=== PATIENT | male | born 1960 | race Caucasian/White ===

== ENCOUNTER 2023-08-19 11:28 | Outpatient (CLI) | payer MEDICAID, SELFPAY ==
[2023-08-19 11:30] VITALS: PULSE 70; O2SAT 96
[2023-08-19 11:36] VITALS: PULSE 107; O2SAT 92
--- NOTE | 2023-08-19 12:49 | HOMEO2EVAL ---
Evaluation was performed at [facility] Home Oxygen Evaluation RC: Home Oxygen (O2) Evaluation Start: 08/19/23 12:36 Freq: Status: Active Protocol: RPE Activity Type Activity Date Activity User E-sign Co-sign Detail Recorded Client Recorded Date Recorded By Document 08/19/23 11:30 ELIZABETH [email or web address] 08/19/23 12:48 SJB Document 08/19/23 11:36 SJB [email or web address] 08/19/23 12:48 SJB 08/19/23 08/19/23 11:30 11:36 Home O2 Evaluation [Oxygen] -Test Phase Resting Exercise -Oxygen Delivery Room Air [Pulse Oximetry] -Pulse Oximetry (90-100 %) 96 92 [Pulse Rate] -Pulse Rate (60-100 beats/min) 70 107 H [Evaluation] -Activity Tolerance Good -Rating of Perceived Dyspnea (PD) +1 Mild, Noticeable to the Participant but Not to an Observer -Rate of Perceived Exertion (PE) 12 Query Text:Click the Protocol Button to View the RPE Scale [Exercise] -Ambulation Distance (feet) 800 -Ambulation Distance (meters) 243.82 [Comments] -Home Oxygen Evaluation Comments Will begin walk Pt walked on room air. approx for 5 1/ 2 mins, 800 ft on room air. Aiden fairly well , coughing frequently and talking throughout. Sp02 stayed at 92% and above. HR up to 107. When RT asked pt if he could go one more lap , pt stated he didn't think he could do much more. [Charges] -Evaluation Charges O2 Evaluation Charge
== END 2023-08-19 11:29 | disposition home or self-care (01) ==
LOC: CHSCARD 11:31
PROVIDERS: PCP Family Medicine; Visit Provider Family Medicine
DX: J44.9 Chronic obstructive pulmonary disease, unspecified (principal)
CPT/HCPCS: 94618

== ENCOUNTER 2024-05-02 11:52 | Outpatient (CLI) | payer OTHER, SELFPAY ==
--- NOTE | ~2024-05-02 | XR_ITS ---
Clinical Indication: COPD PA and lateral views of the chest: Comparison: None Findings: The lungs are clear, without evidence of focal consolidation or pleural effusion. There is COPD pattern of the lungs. Cardiac silhouette unremarkable. There is prominent central pulmonary vasc ulature. Bones and soft tissues are unremarkable. Impression: COPD. Suspected pulmonary artery hypertension versus possibly central pulmonary venous congestive change. Reviewed, dictated and finalized at location . CH BINDING FOLDER Impression: COPD. Suspected pulmonary artery hypertension versus possibly central pulmonary venou s congestive change.
[2024-05-02 12:36] LABS: Basophils Absolute Auto 0.03 K/mm3 (0.00-0.10); Basophils Percent Auto 0.5 % (0.0-1.0); Eosinophils Absolute Auto 0.05 K/mm3 (0.02-0.50); Eosinophils Percent Auto 0.8 % (1.0-6.0); Hematocrit 42.6 % (40.0-54.0); Hemoglobin 14.4 g/dL (14.0-18.0); Immature Granulocyte Absolute 0.01 K/mm3 (0.00-0.00); Immature Granulocyte Percent A 0.2 % (0.0-0.0); Lymphocytes Absolute Auto 1.51 K/mm3 (1.10-4.50); Lymphocytes Percent Auto 23.7 % (18.0-42.0); Mean Corpuscular HGB Conc 33.8 g/dL (32-36); Mean Corpuscular Hemoglobin 31.5 pg (27.0-31.0); Mean Corpuscular Volume 93.2 fL (78.0-102.0); Mean Platelet Volume 9.8 fl (8.7-11.0); Monocytes Absolute Auto 0.38 K/mm3 (0.10-0.90); Neutrophils Absolute Auto 4.38 K/mm3 (1.70-7.20); Neutrophils Percent Auto 68.8 % (50.0-70.0); Platelet Count Result 278 K/mm3 (150-420); Red Blood Count 4.57 M/mm3 (4.70-6.10); Red Cell Distribution Width 13.1 % (11.6-14.4); White Blood Count 6.4 K/mm3 (4.8-10.8)
[2024-05-02 13:39] LABS: Alanine Aminotransferase 55 U/L (16-63); Albumin Level 3.2 g/dL (3.4-5.0); Alkaline Phosphatase 197 U/L (46-116); Anion Gap 7 mmol/L (4-12); Aspartate Amino Transferase 45 U/L (15-37); Bilirubin,Total 0.5 mg/dL (0.00-1.00); Blood Urea Nitrogen 17 mg/dL (7-18); Calcium 9.2 mg/dL (8.5-10.1); Carbon Dioxide 28 mmol/L (21-32); Chloride 101 mmol/L (98-108); Estimated Glomerular Filt Rate > 60; Glucose 158 mg/dL (70-99); Osmolality Calculated 286 mOsm/kg (285-295); Potassium 4.3 mmol/L (3.5-5.1); Sodium 136 mmol/L (136-145); Thyroid Stimulating Hormone 3.78 uIU/mL (0.36-3.74)
[2024-05-03 09:24] LABS: Free T4 Free Thyroxine 1.15 ng/dL (0.76-1.46)
[2024-05-03 09:27] LABS: Hemoglobin A1C 6.4 % (<5.7)
== END 2024-05-02 11:53 | disposition home or self-care (01) ==
LOC: CHSLAB 11:55
PROVIDERS: PCP Family Medicine; Visit Provider Family Medicine
DX: I73.9 Peripheral vascular disease, unspecified (principal); E78.5 Hyperlipidemia, unspecified; J44.1 Chronic obstructive pulmonary disease with (acute) exacerbation
CPT/HCPCS: 36415; 71046; 80053; 83036; 84439; 84443; 85025

== ENCOUNTER 2024-07-13 10:06 | Emergency (ER) | payer OTHER, SELFPAY ==
[2024-07-13] VITALS (33 sets, daily range): BP systolic 106–138; BP diastolic 70–94; PULSE 65–106; RESP 8–19; TEMP 36.3–37.1; O2SAT 96–100
--- NOTE | ~2024-07-13 | XR_ITS ---
EXAMINATION: XR chest 1V portable DATE: 07/13/2024 11:03 INDICATION: COPD with coughing, confusion and drowsiness TECHNIQUE: frontal view of the chest was obtained. COMPARISON: Chest radiograph dated 05/02/2024 FINDINGS: Hyperexpansion of the lungs consistent with provided history of COPD. There are few scattered small c alcified pulmonary nodules along with calcified mediastinal lymph nodes consistent with old granuloma tous disease. No other airspace opacities, pulmonary edema, pleural effusion or pneumothorax. The car diomediastinal silhouette is normal. IMPRESSION: 1. Hyperexpansion lungs consistent with provided history of COPD with no superimposed acute cardiopul monary disease. Reviewed, dictated and finalized at location A. ATIC TEACHER IMPRESSION: 1. Hyperexpansion lungs consistent with provided history of COPD with no superi mposed acute cardiopulmonary disease.
--- NOTE | ~2024-07-13 | CT_ITS ---
Non-contrast Head CT History: Mental status change Technique: Axial non-contrast imaging of the brain was performed. Dose reduction technique was used on this scan by utilizing automated exposure control and iterative reconstruction technique. The dose -length product (DLP) was 605.33 mGy-cm. Findings: There is no evidence of intracranial hemorrhage, mass lesion, or acute infarct. Brain par enchyma appears normal. The ventricles and subarachnoid spaces are normal in size. The calvarium ap pears normal. There is mucosal thickening in the visualized right maxillary sinus. The remaining visu alized paranasal sinuses and mastoid air cells are clear. Impression: No intracranial abnormality seen. Reviewed, dictated and finalized at location . RAM DIRECTOR/MORNING SHOW HOST Impression: No intracranial abnormality seen.
[2024-07-13 10:20] LABS: Glucose Point of Care 111 mg/dl (65-105)
--- NOTE | 2024-07-13 10:24 | ED_ITS ---
HPI - Altered Mental Status General Chief Complaint: Altered Mental Status Stated Complaint: confusion Time Seen by Provider: 07/13/24 10:24 Source: family Limitations: altered mental status History of Present Illness HPI narrative: 63-year-old male, smoker with a history of COPD hepatitis C, PVD status post lower extremity stent presents to the ED with a 2 day history of -- confusion. patient lives with roommates who described him to be confused. He is unable to answer questions. He follows simple commands. He is drowsy but arousable. No focal neuro deficits noted. His daughter who lives in [place] brought him to the ED. -- bilateral leg swelling complaint: altered mental status and confusion Onset (ago): day(s) ( one day) Timing confirmed by: family member Context: liver disease and COPD Related Data Allergies Allergy/AdvReac Type Severity Reaction Status Date / Time No Known Allergies Allergy Verified 07/13/24 10:22 Review of Systems 2 Review of Systems: ROS unobtainable: Yes unobtainable due to mental status FOR[facility]LY [facility], [facility] Past Medical History Medical History (Updated 07/13/24 @ 13:29 by Jasbir Natino MD) Peripheral vascular disease Hepatitis C Asthma exacerbation in COPD Exam 2 Narrative: pulse is 106 blood pressure 112/86. Oxygen saturation of 99% on room air. patient is noted to have a decreased respiratory rate. Const: General: ill appearing Nutritional Appearance: thin Limitations: altered mental status Other: Patient is drowsy but arousable. Does not answer questions. Follows simple commands. HENMT: Head: normal to inspection Ears: external ears normal F yael/Nose/Sinus: Normal external nose present Face and sinus: normal facial exam Mouth: Yes Normal oral and palatal mucosa present Throat: posterior oropharynx normal Eyes: Conjunctivae: conjunctivae normal Pupils: Equal, round and reactive pupils present EOM: EOMs intact bilaterally Direct Ophthalmoscopy: no photophobia Neck: Neck: normal visual inspection, no lymphadenopathy and no meningeal signs Chest: Chest palpation & inspection: normal inspection of the chest Resp: Effort & Inspection: normal respiratory effort Auscultation: rhonchi and diminished lung sounds Cardio: Rate: regular rate Rhythm: regular rhythm GI: GI Palp: Yes Soft to palpation Auscultation: normal bowel sounds O ther: No tenderness/rigidity / rebound. : General: Yes no CVA tenderness Back/Spine/Pelvis: Back: no CVA tenderness Skin: General skin exam: normal color Rashes: no rashes Wounds: no wounds Neuro: General: patient oriented x3, moves all extremities, no meningeal signs, no focal motor deficits and CN's II-XI intact bilaterally Extrem: General: edema Course Course Emergency Course: altered mental status-- improved with IV naloxone. subsequently patient admitted to having taken his roommates pain medications. influenza a hypothyroidism elevated troponin/ CHF hyperinflated lung niño Vital Signs Vital signs: Vital Signs Temperature 36.3 C L 07/13/24 10:06 Pulse Rate 106 H 07/13/24 10:06 Respiratory Rate 14 07/13/24 10:06 Blood Pressure 112/86 07/13/24 10:06 Pulse Oximetry 99 07/13/24 10:06 Oxygen Delivery Nasal Cannula 07/13/24 10:06 Oxygen Flow Rate 3 07/13/24 10:06 Temperature 36.3 C L 07/13/24 10:06 Pulse Rate 82 07/13/24 12:53 Respiratory Rate 16 07/13/24 12:46 Blood Pressure 120/75 07/13/24 12:45 Pulse Oximetry 100 07/13/24 12:46 Oxygen Delivery Nasal Cannula 07/13/24 10:06 Oxygen Flow Rate 3 07/13/24 10:06 MDM - Altered Mental Status MDM Narrative Medical decision making narrative: influenza a opiate overdose CHF-- patient needs further workup and treatment. His CHF is compensated . His blood pressure is marginal. COPD hypothyroidism Differential Diagnosis Differential diagnosis: Likely alcoholic intoxication and altered mental status Medical Records Attestation: I reviewed the patient's medical records. Lab Data Attestation: I reviewed the patient's lab results. 07/13/24 10:48 07/13/24 10:48 Labs: Lab Results 07/13/24 07/13/24 07/13/24 Range/Units 10:17 10:37 10:48 WBC 4.2 L (4.8-10.8) K/mm3 RBC 4.24 L (4.70-6.10) M/mm3 Hgb 13.3 L (14.0-18.0) g/dL Hct 41.1 (40.0-54.0) % MCV 96.9 (78.0-102.0) fL MCH 31.4 H (27.0-31.0) pg MCHC 32.4 (32-36) g/dL RDW 13.5 (11.6-14.4) % Plt Count 178 (150-420) K/mm3 MPV 9.8 (8.7-11.0) fl Immature Gran % (Auto) 0.2 H (0.0-0.0) % Neut % (Auto) 61.5 (50.0-70.0) % Lymph % (Auto) 23.6 (18.0-42.0) % [place] % (Auto) 13.3 H (2.0-11.0) % Eos % (Auto) 0.7 L (1.0-6.0) % Baso % (Auto) 0.7 (0.0-1.0) % Lymph # (Auto) 0.99 L (1.10-4.50) K/mm3 [place] # (Auto) 0.56 (0.10-0.90) K/mm3 Eos # (Auto) 0.03 (0.02-0.50) K/mm3 Baso # (Auto) 0.03 (0.00-0.10) K/mm3 Abs Immat Gran (auto) 0.01 H (0.00-0.00) K/mm3 Absolute Neuts (auto) 2.58 (1.70-7.20) K/mm3 Absolute Nucleated RBC 0.00 (0.00-0.00) K/mm3 Nucleated RBC % 0.0 (0-0.0) % PT 10.7 (9.50-12.1) Seconds INR 1.0 APTT 29.1 (23.9-30.70) Sec Sodium 141 (136-145) mmol/L Potassium 4.2 (3.5-5.1) mmol/L Chloride 104 (98-108) mmol/L Carbon Dioxide 28 (21-32) mmol/L Anion Gap 9 (4-12) mmol/L BUN 16 (7-18) mg/dL Creatinine 1.13 (0.70-1.30) mg/dL Estim Creat Clear Calc 48 ml/min Estimated GFR > 60 (59 - ) Glucose 109 H (70-99) mg/dL POC Capillary Glucose 111 H (65-105) mg/dl Calculated Osmolality 294 (285-295) mOsm/kg Lactic Acid 1.7 (0.4-2.0) mmol/L Calcium 8.8 (8.5-10.1) mg/dL Total Bilirubin 0.3 (0.00-1.00) mg/dL Direct Bilirubin 0.1 (0-0.2) mg/dL AST 36 (15-37) U/L ALT 40 (16-63) U/L Alkaline Phosphatase 210 H (46-116) U/L Ammonia 21 (11-32) umol/L Total Creatine Kinase 103 (39-308) U/L Troponin I 286.9 H* (0.00-60.4) ng/L NT-Pro-B Natriuret Pep 2573 H (0-125) pg/mL Total Protein 7.2 (6.4-8.2) g/dL Albumin 3.3 L (3.4-5.0) g/dL Lipase 47 (16-77) U/L TSH 7.41 H (0.36-3.74) uIU/mL Influenza A (RT-PCR) Positive A (Negative) Influenza B (RT-PCR) Negative (Negative) RSV (RT-PCR) Negative (Negative) SARS-CoV-2 RNA (RT-PCR) Negative (Negative) 07/13/24 Range/Units 12:58 WBC (4.8-10.8) K/mm3 RBC (4.70-6.10) M/mm3 Hgb (14.0-18.0) g/dL Hct (40.0-54.0) % MCV (78.0-102.0) fL MCH (27.0-31.0) pg MCHC (32-36) g/dL RDW (11.6-14.4) % Plt Count (150-420) K/mm3 MPV (8.7-11.0) fl Immature Gran % (Auto) (0.0-0.0) % Neut % (Auto) (50.0-70.0) % Lymph % (Auto) (18.0-42.0) % [place] % (Auto) (2.0-11.0) % Eos % (Auto) (1.0-6.0) % Baso % (Auto) (0.0-1.0) % Lymph # (Auto) (1.10-4.50) K/mm3 [place] # (Auto) (0.10-0.90) K/mm3 Eos # (Auto) (0.02-0.50) K/mm3 Baso # (Auto) (0.00-0.10) K/mm3 Abs Immat Gran (auto) (0.00-0.00) K/mm3 Absolute Neuts (auto) (1.70-7.20) K/mm3 Absolute Nucleated RBC (0.00-0.00) K/mm3 Nucleated RBC % (0-0.0) % PT (9.50-12.1) Seconds INR APTT (23.9-30.70) Sec Sodium (136-145) mmol/L Potassium (3.5-5.1) mmol/L Chloride (98-108) mmol/L Carbon Dioxide (21-32) mmol/L Anion Gap (4-12) mmol/L BUN (7-18) mg/dL Creatinine (0.70-1.30) mg/dL Estim Creat Clear Calc ml/min Estimated GFR (59 - ) Glucose (70-99) mg/dL POC Capillary Glucose (65-105) mg/dl Calculated Osmolality (285-295) mOsm/kg Lactic Acid (0.4-2.0) mmol/L Calcium (8.5-10.1) mg/dL Total Bilirubin (0.00-1.00) mg/dL Direct Bilirubin (0-0.2) mg/dL AST (15-37) U/L ALT (16-63) U/L Alkaline Phosphatase (46-116) U/L Ammonia (11-32) umol/L Total Creatine Kinase (39-308) U/L Troponin I 276.7 H* (0.00-60.4) ng/L NT-Pro-B Natriuret Pep (0-125) pg/mL Total Protein (6.4-8.2) g/dL Albumin (3.4-5.0) g/dL Lipase (16-77) U/L TSH (0.36-3.74) uIU/mL Influenza A (RT-PCR) (Negative) Influenza B (RT-PCR) (Negative) RSV (RT-PCR) (Negative) SARS-CoV-2 RNA (RT-PCR) (Negative) ECG Data EKG #1: ECG completion date: 07/13/24 ECG completion time: 10:48 Interpretation: normal sinus rhythm. S1-S2 S3 pattern is due pulmonary disease. no ST elevation noted. Discharge Plan Discharge Clinical Impression: Influenza A CHF (congestive heart failure) Qualifiers: Heart failure type: unspecified Heart failure chronicity: unspecified Qualified Code(s): I50.9 - Heart failure, unspecified Hypothyroidism Qualifiers: Hypothyroidism type: unspecified Qualified Code(s): E03.9 - Hypothyroidism, unspecified COPD (chronic obstructive pulmonary disease) Qualifiers: COPD type: unspecified COPD Qualified Code(s): J44.9 - Chronic obstructive pulmonary disease, unspecified Opiate overdose Qualifiers: Encounter type: initial encounter Injury intent: accidental or unintentional Q ualified Code(s): T40.601A - Poisoning by unspecified narcotics, accidental (unintentional), initial encounter Patient Disposition: Home, Self-Care Condition: Stable Instructions: Antibiotic Form, Heart Failure (ED), Hypothyroidism (ED), Influenza (ED), Narcotic Safety (ED), COPD (Chronic Obstructive Pulmonary Disease) (ED) Additional Instructions: follow-up with primary care physician Patient Language: Welsh Prescriptions: New naloxone 10 mg/0.4 mL auto-injector 2 mg subcut Q3M Qty: 4 0RF Rx Instructions: until desired response albuterol sulfate [Ventolin HFA] 90 mcg/actuation HFA aerosol inhaler 1 puff inhalation QID PRN (Reason: shortness of breath or wheezing) Qty: 8.5 0RF Follow-up/Referrals: Shadi Farley MD [Primary Care Provider] - Time of Disposition: 13:29
--- NOTE | 2024-07-13 10:36 | ECG_ITS ---
Test Date: 2024-07-13 10:48:30 Measurements Intervals [place] Rate: 93 P: 81 WI: 147 QRS: 241 QRSD: 94 T: 57 QT: 358 QTc: 447 Interpretive Statements SINUS RHYTHM RIGHT AXIS DEVIATION INCOMPLETE RIGHT BUNDLE BRANCH BLOCK PATTERN CONSISTENT WITH PULMONARY DISEASE BASELINE ARTIFACT- I, II, III, AVL, AVF, V4-V6 BORDERLINE ECG No previous ECG available for comparison Electronically Signed On 07-13-2024 11:18:00 TEACHER SPECIALIST by Riaz Morrison D.O.
[2024-07-13] MEDS: NALOXONE HCL 0.4 MG/ML VIAL IV PUSH (10:43)
[2024-07-13] MEDS: ONDANSETRON INJ 4 MG/2 ML VIAL IV PUSH (10:43)
[2024-07-13 10:52] LABS: Basophils Absolute Auto 0.03 K/mm3 (0.00-0.10); Basophils Percent Auto 0.7 % (0.0-1.0); Eosinophils Absolute Auto 0.03 K/mm3 (0.02-0.50); Eosinophils Percent Auto 0.7 % (1.0-6.0); Hematocrit 41.1 % (40.0-54.0); Hemoglobin 13.3 g/dL (14.0-18.0); Immature Granulocyte Absolute 0.01 K/mm3 (0.00-0.00); Immature Granulocyte Percent A 0.2 % (0.0-0.0); Lymphocytes Absolute Auto 0.99 K/mm3 (1.10-4.50); Lymphocytes Percent Auto 23.6 % (18.0-42.0); Mean Corpuscular HGB Conc 32.4 g/dL (32-36); Mean Corpuscular Hemoglobin 31.4 pg (27.0-31.0); Mean Corpuscular Volume 96.9 fL (78.0-102.0); Mean Platelet Volume 9.8 fl (8.7-11.0); Monocytes Absolute Auto 0.56 K/mm3 (0.10-0.90); Monocytes Percent Auto 13.3 % (2.0-11.0); Neutrophils Absolute Auto 2.58 K/mm3 (1.70-7.20); Neutrophils Percent Auto 61.5 % (50.0-70.0); Platelet Count Result 178 K/mm3 (150-420); Red Blood Count 4.24 M/mm3 (4.70-6.10); Red Cell Distribution Width 13.5 % (11.6-14.4); White Blood Count 4.2 K/mm3 (4.8-10.8)
--- OUTSIDE RECORDS SUMMARY | 2024-07-13 11:04 | XMS_ITS | Clinical Summary ---
Author Organization [facility] Address [facility] [place] [address] Care Team Providers Care Earth Observations Chief Scientist Name Role Phone Dipti Rosario MD Primary Care Provider Social History Tobacco Use Types Packs/Day Years Used Date Smoking Tobacco: Smoker, Current Status Unknown Sex and Gender Information Value Date Recorded Sex Assigned at Male 07/01/2024 3:28 PM NOC TECHNICIAN Legal Sex Male 7:51 PM CDT Gender Identity Not on file Sexual Orientation Not on file Last Filed Vital Signs Vital Sign Reading Time Taken Comments Blood Pressure 110/70 01/08/2010 10:19 AM CDT Pulse 75 01/08/2010 10:19 AM CDT Temperature - - Respiratory Rate 14 01/08/2010 10:19 AM CDT Oxygen Saturation - - Inhaled Oxygen Concentration - - Weight 62.1 kg (137 lb) 01/08/2010 10:19 AM CDT Height 165.1 cm (5' 5 ) 01/08/2010 10:19 AM CDT Body Mass Index 22.8 01/08/2010 10:19 AM CDT Plan of Treatment Upcoming Encounters Date Type Department Care Team (Late st Contact Info) Description 07/13/2024 11:15 AM NOC TECHNICIAN Appointment [place] [facility] [address] [place] [address] Ryan Fermin MD [address] [place] [address] Health Maintenance Due Date Last Done Comments Colorectal Cancer Screening Colonoscopy (10 Years) 1960 Annual Physical 1963 Pneumococcal Vaccine: Pediatrics (0 to 5 Years) and At-Risk Patients (6 to 64 Years) (1 of 2 - PCV) 1966 DTaP, Tdap and Td Vaccines ( 1 - Tdap) 1979 Zoster Vaccines (1 of 2) 2010 COVID-19 Vaccine (3 - 2023-2 5 season) 2024 08/25/2020, 07/28/2020 Influenza Adult (#1) 2024 RSV Immunization or 60+ Years (1 - 1-dose 75+ series) 2035 Hepatitis C Completed 09/09/2011, 09/09/2010, 03/19/2010 Meningococcal B Vaccine Aged Out No l onger eligible based on patient's age to complete this topic Meningococcal Vaccine Aged Out No shubham narinder eligible based on patient's age to complete this topic RSV Immunizations Under 20 Months Aged Out No longer eligible b ased on patient's age to complete this topic Insurance Care Teams Earth Observations Chief Scientist Relationship Specialty Start Date End Date Dipti Rosario MD [address] [place] [address] PCP - General INTERNAL MEDICINE 04/06/24
--- OUTSIDE RECORDS SUMMARY | 2024-07-13 11:04 | XMS_ITS ---
Author Organization Unknown Address [address] [place] [phone] Phone Care Team Providers Care Forest Nursery Supervisor Name Role Phone WILBERT GRAYSON Attending Unavailable NATTY CABRAL Primary Unavailable Immunization Immunization Date Status Additional Notes Code Code System COVID-19, mRNA, LNP-S, bivalent, PF, 50 mcg/0.5 mL or 25mcg/0.25 mL dose 07/28/2020 Completed 229 CVX COVID-19, mRNA, LNP-S, bivalent, PF, 50 mcg/0.5 mL or 25mcg/0.25 mL dose 08/25/2020 Completed 229 CVX Results SHOULDER MIN 2V RIGHT - Comp leted: 08/28/2023 13:25 LOINC: EXAM DESCRIPTION: ? ? SHOULDER MIN 2V RIGHT REASON FOR STUDY: chronic shoulder pain/ worsening/ old trauma several years ago Duration: 8-9 years FINDINGS: Four views submitted without comparison. No acute fractures are identified. Alignment is normal. There is mild glenohumeral and severe acromioclavicular joint osteoarthritis. Multiple loose bodies in the subcoracoid recess are noted. IMPRESSION: ? ? Mild right glenohumeral and severe acromioclavicular joint osteoarthritis with multiple loose bodies in the subcoracoid recess. THIS IS AN ELECTRONICALLY VERIFIED FINAL REPORT 08/29/2023 5:16 PM - Electronically signed by Andrew Phan M.D. MF: [email or web address] Report ID: [id number] Reading Location: [id number] Social History Type Status Start Date End Date Code Code Syst em Sex Male Hospital Discharge Instructions Should you have any questions prior to discharge, please contact a member of your healthcare team. If you have left the hospital and have any questions, please contact your primary care physician. Reason For Referral No Data Found Plan of Treatment Split Night, CPAP/BIPAP/ASV (56836) 05/2025 Encounters Encounter Diagnosis Start Date Code Code Sys tem Incomplete rotator cuff tear or rupture of right shoulder, not specified as traumatic 08/28/2023 [facility] Personal Care Team Section Performer Name Performer Role Active Date Inactive MARIANNA Vazquez PCP - Primary care physician Imaging Narrative Notes
[2024-07-13 11:18] LABS: Lactic Acid Reflex 1.7 mmol/L (0.4-2.0)
[2024-07-13 11:22] LABS: Alanine Aminotransferase 40 U/L (16-63); Albumin Level 3.3 g/dL (3.4-5.0); Alkaline Phosphatase 210 U/L (46-116); Anion Gap 9 mmol/L (4-12); Aspartate Amino Transferase 36 U/L (15-37); Bilirubin Direct 0.1 mg/dL (0-0.2); Bilirubin,Total 0.3 mg/dL (0.00-1.00); Blood Urea Nitrogen 16 mg/dL (7-18); Calcium 8.8 mg/dL (8.5-10.1); Carbon Dioxide 28 mmol/L (21-32); Chloride 104 mmol/L (98-108); Creatine Kinase 103 U/L (39-308); Estimated CRCL calculation 48 ml/min; Estimated Glomerular Filt Rate > 60; Glucose 109 mg/dL (70-99); Lipase 47 U/L (16-77); Osmolality Calculated 294 mOsm/kg (285-295); Potassium 4.2 mmol/L (3.5-5.1); Sodium 141 mmol/L (136-145); Thyroid Stimulating Hormone 7.41 uIU/mL (0.36-3.74); Total Protein 7.2 g/dL (6.4-8.2)
[2024-07-13 11:26] LABS: Troponin I 286.9 ng/L (0.00-60.4)
[2024-07-13 11:28] LABS: Partial Thromboplastin Time 29.1 Sec (23.9-30.70); Prothrombin Time 10.7 Seconds (9.50-12.1)
[2024-07-13 11:29] LABS: Ammonia 21 umol/L (11-32); NT Pro B Type Natriuretic Pept 2573 pg/mL (0-125)
--- OUTSIDE RECORDS SUMMARY | 2024-07-13 11:31 | XMS_ITS | Clinical Summary ---
Author Organization [facility] Address [facility] [place] [address] Care Team Providers Care Stable Helper Name Role Phone Dipti Rosario MD Primary Care Provider [phone] Social History Tobacco Use Types Packs/Day Years Used Date Smoking Tobacco: Smoker, Current Status Unknown Sex and Gender Information Value Date Recorded Sex Assigned at Male 07/01/2024 3:28 PM REPORT PROGRAMMER Legal Sex Male 7:51 PM CDT Gender [...] 01/08/2010 10:19 AM CDT Plan of Treatment Health Maintenance Due Date Last Done Comments [...] patient's age to complete this topic Insurance [employer] Care Teams Stable Helper Relationship Specialty Start Date End Date Dipti Rosario MD [address] [place] [phone] PCP - General INTERNAL MEDICINE 04/06/24
--- OUTSIDE RECORDS SUMMARY | 2024-07-13 11:31 | XMS_ITS ---
Author Organization Unknown Address [address] [place] [phone] Phone Care Team Providers Care Manager Helpdesk Name Role Phone WILBERT GRAYSON Attending Unavailable [...] Andrew Phan M.D. MF: [email or web address] Report ID: [id number] Reading Location: [id number] Social History Type Status Start Date End Date Code Code Syst em Sex Male Hospital Discharge Instructions Should you have any questions prior to discharge, please contact a member of your healthcare team. If you have left the hospital and have any questions, please contact your primary care physician. Reason For Referral No Data Found Plan of Treatment Split Night, CPAP/BIPAP/ASV (97581) 05/2025 Encounters Encounter Diagnosis Start Date Code Code Sys tem Incomplete rotator cuff tear or rupture of right shoulder, not specified as traumatic 08/28/2023 [facility] Personal Care Team Section Performer Name Performer Role Active Date Inactive MARIANNA Vazquez PCP - Primary care physician Imaging Narrative Notes
[2024-07-13 11:55] LABS: SARS-CoV-2 RNA PCR Negative (Negative)
[2024-07-13 11:56] LABS: Influenza A QL RT-PCR Positive (Negative); Influenza B QL RT-PCR Negative (Negative); RSV RNA, RT-PCR Negative (Negative)
[2024-07-13] MEDS: NALOXONE HCL INJ 2 MG/2 ML AMP SUB-Q (12:32)
[2024-07-13 13:21] LABS: Troponin I 276.7 ng/L (0.00-60.4)
== END 2024-07-13 13:35 | disposition home or self-care (01) ==
PROVIDERS: Emergency Provider Internal Medicine Critical Care Medicine; PCP Family Medicine
DX: J10.1 Influenza due to other identified influenza virus with other respiratory manifestations (principal); J44.9 Chronic obstructive pulmonary disease, unspecified; E03.9 Hypothyroidism, unspecified; T40.601A Poisoning by unspecified narcotics, accidental (unintentional), initial encounter; I50.9 Heart failure, unspecified; Z20.822 Contact with and (suspected) exposure to COVID-19
CPT/HCPCS: 36415; 70450; 71045; 80048; 80076; 82140; 82550; 82948; 83605; 83690; 83880; 84443; 84484; 85025; 85610; 85730; 87637; 93005; 96372; 96374; 96375; 99284; J2310; J2405

== ENCOUNTER 2024-07-27 15:22 | Outpatient (CLI) | payer OTHER, SELFPAY ==
--- NOTE | ~2024-07-27 | XR_ITS ---
EXAMINATION: XR chest 2V Exam Date/Time: 07/27/2024 15:42 VOCATIONAL TRAINING INSTRUCTOR HISTORY: COPD with exacerbation,SOB Comparison: 07/13/2024, 07/03/2023. RESULT: Lines, tubes, and devices: None. Lungs and pleura: New lobar interstitial and airspace opacities in the right lower lobe. Emphysemato us change. Trace right costophrenic angle blunting. Cardiomediastinal silhouette: Stable. Other: No acute osseous or upper abdominal finding. IMPRESSION: Right lower lobe pneumonia. Possible trace right pleural effusion. Reviewed, dictated and finalized at location K. TIONAL TRAINING INSTRUCTOR
[2024-07-27 15:45] LABS: Hematocrit 40.3 % (40.0-54.0); Mean Corpuscular HGB Conc 32.3 g/dL (32-36); Mean Platelet Volume 10.3 fl (8.7-11.0); Platelet Count Result 208 K/mm3 (150-420); Red Cell Distribution Width 12.9 % (11.6-14.4)
[2024-07-27 15:57] LABS: White Blood Count 23.1 K/mm3 (4.8-10.8)
[2024-07-27 16:07] LABS: Prothrombin Time 11.3 Seconds (9.50-12.1)
[2024-07-27 16:08] LABS: Band Neutrophils Percent 5 % (0-6); Basophils Percent Manual 0 % (0-1); Eosinophils Percent Manual 0 % (1-6); Lymphocytes Absolute Manual 1.38 K/mm3 (1.1-4.5); Lymphocytes Percent Manual 6 % (18-44); Monocytes Absolute Manual 1.38 K/mm3 (0.1-0.90); Monocytes Percent Manual 6 % (3-9); Neutrophils Absolute Manual 20.32 K/mm3 (1.3-6.7); Neutrophils Percent Manual 83 % (46-73); Total Cells Counted 100
[2024-07-27 16:09] LABS: Alanine Aminotransferase 30 U/L (16-63); Albumin Level 2.3 g/dL (3.4-5.0); Alkaline Phosphatase 212 U/L (46-116); Amylase 31 U/L (25-115); Anion Gap 10 mmol/L (4-12); Aspartate Amino Transferase 34 U/L (15-37); Bilirubin,Total 0.6 mg/dL (0.00-1.00); Blood Urea Nitrogen 44 mg/dL (7-18); Calcium 9.2 mg/dL (8.5-10.1); Carbon Dioxide 29 mmol/L (21-32); Chloride 99 mmol/L (98-108); Estimated Glomerular Filt Rate > 60; Free T4 Free Thyroxine 1.45 ng/dL (0.76-1.46); GGT 19 U/L (15-85); Glucose 171 mg/dL (70-99); Lipase 31 U/L (16-77); Osmolality Calculated 301 mOsm/kg (285-295); Platelet Estimate Adequate (Adequate); Potassium 3.6 mmol/L (3.5-5.1); Sodium 138 mmol/L (136-145); Thyroid Stimulating Hormone 2.85 uIU/mL (0.36-3.74); Total Protein 7.2 g/dL (6.4-8.2)
[2024-07-27 16:26] LABS: Ammonia < 10 umol/L (11-32)
--- OUTSIDE RECORDS SUMMARY | 2024-07-27 17:50 | XMS_ITS | Clinical Summary ---
Author Organization [facility] Address [facility] [place] [address] Care Team Providers Care Spool Hauler Name Role Phone Dipti Rosario MD Primary Care Provider [phone] Social History Tobacco Use Types Packs/Day Years Used Date Smoking Tobacco: Smoker, Current Status Unknown Sex and Gender Information Value Date Recorded Sex Assigned at Male 07/01/2024 3:28 PM TRANSFER DRIVER Legal Sex Male 7:51 PM CDT Gender [...] patient's age to complete this topic Insurance [employer]W Care Teams Spool Hauler Relationship Specialty Start Date End Date Dipti Rosario MD [address] [place] [phone] PCP - General INTERNAL MEDICINE 04/06/24
--- OUTSIDE RECORDS SUMMARY | 2024-07-27 17:50 | XMS_ITS ---
Author Organization Unknown Address [address] [place] [phone] Phone Care Team Providers Care Aviation Safety Inspector Name Role Phone WILBERT GRAYSON Attending Unavailable [...] Andrew Phan M.D. MF: SHOAIB Report ID: [id number] Reading Location: [id number] Social History Type Status Start Date End Date Code Code Syst em Sex Male Hospital Discharge Instructions Should you have any questions prior to discharge, please contact a member of your healthcare team. If you have left the hospital and have any questions, please contact your primary care physician. Reason For Referral No Data Found Plan of Treatment Split Night, CPAP/BIPAP/ASV (76536) 05/2025 Encounters Encounter Diagnosis Start Date Code Code Sys tem Incomplete rotator cuff tear or rupture of right shoulder, not specified as traumatic 08/28/2023 [facility] Personal Care Team Section Performer Name Performer Role Active Date Inactive MARIANNA Vazquez PCP - Primary care physician Imaging Narrative Notes
== END 2024-07-27 15:23 | disposition home or self-care (01) ==
PROVIDERS: PCP Family Medicine; Visit Provider Family Medicine
DX: R10.9 Unspecified abdominal pain (principal); B19.20 Unspecified viral hepatitis C without hepatic coma; R94.6 Abnormal results of thyroid function studies; J18.9 Pneumonia, unspecified organism
CPT/HCPCS: 36415; 71046; 80053; 82140; 82150; 82977; 83690; 84439; 84443; 85025; 85610

== ENCOUNTER 2025-02-01 12:00 | Emergency (ER) | payer OTHER, SELFPAY ==
[2025-02-01] VITALS (15 sets, daily range): BP systolic 112–141; BP diastolic 68–78; PULSE 60–85; RESP 14–24; TEMP 36.6–36.7; O2SAT 98–100
--- NOTE | 2025-02-01 | CONSULT_PTH ---
PATIENT: Eddie Kirkland LOC: [facility] U#:[id number] AGE/SX: 64/M ROOM: RE02/01/[address]: Jasbir Nation MD : 1960 BED: DIS: 02/01/2025 SPEC #: [id number] RECD: 02/01/25 13:23 STATUS: TARA REQ #: [id number] STEPHANIE: 02/01/25 00:[address]: Jasbir Nation DEPT: [facility] Consult RECD BY: Kathie Villalobos MLT, ([facility]) ENTERED: 02/01/25 13:24 SP TYPE: Consult OTHR DR: Shadi Farley MD Tissues: A - Peripheral Smear Procedures: Hematology Consult
--- NOTE | ~2025-02-01 | XR_ITS ---
EXAMINATION: XR chest 1V portable DATE: 02/01/2025 12:58 INDICATION: Shortness of breath TECHNIQUE: frontal view of the chest was obtained. COMPARISON: Chest radiograph dated 07/27/2024 FINDINGS: Prior airspace opacities in the right middle and lower lobes resolved. A few unchanged small scattered bilateral calcified pulmonary nodules and calcified mediastinal lymph nodes consistent with old granulomatous disease. No other airspace opacities, pulmonary edema, pleural effusion or pneumothorax. Heart size is normal. Several loose osteochondral bodies in the deep subscapular recess of the right glenohumeral joint. IMPRESSION: 1. No acute cardiopulmonary disease. Reviewed, dictated and finalized at location A.
--- NOTE | 2025-02-01 12:15 | ED.SOB ---
HPI - SOB/Dyspnea General Chief Complaint: Shortness of Breath/Dyspnea Stated Complaint: shortness of breath Source: patient Mode of arrival: ambulatory Limitations: no limitations History of Present Illness HPI Narrative: 64-year-old male with a history of smoking, COPD on home oxygen, peripheral vascular disease status post stent of lower extremity, hepatitis-C presents to the ED with a 2 hour history of -- worsening shortness of breath. -- cough with mucopurulent sputum no fever or chills. Complains of pleuritic chest pain. Patient had a court date this morning. When he got out of the house at 10:00 a.m. the patient developed the above symptoms following which he presented to the ED. MD elicited complaint: shortness of breath, cough and chest pain Pertinent past history: COPD Onset (ago): hour(s) ( 2 hours ago) Timing: constant Severity: severe Exacerbating factors: exertion and humidity Relieving factors: nothing Known history of: COPD Associated symptoms: cough, wheezing and sputum production Treatment prior to arrival: none Related Data Home oxygen amount: 2 liters Home Medications ?Medication ?Instructions ?Recorded ?Confirmed ?Last Taken ?Type albuterol sulfate 2.5 mg/3 mL 2.5 mg inhalation Q4-6H 02/01/25 02/01/25 Unknown History (0.083 %) solution for nebulization atorvastatin 20 mg tablet 20 mg PO QPM 02/01/25 02/01/25 Unknown History calcium polycarbophil 625 mg 625 mg PO DAILY 02/01/25 02/01/25 Unknown History tablet (Fiber (calcium polycarbophil)) montelukast 10 mg tablet 10 mg PO DAILY 02/01/25 02/01/25 Unknown History omeprazole 20 mg capsule,delayed 20 mg PO DAILY 02/01/25 02/01/25 Unknown History release theophylline 400 mg 400 mg PO DAILY 02/01/25 02/01/25 Unknown History tablet,extended release 24 hr Allergies Allergy/AdvReac Type Severity Reaction Status Date / Time No Known Allergies Allergy Verified 02/01/25 12:20 Review of Systems Review of Systems: All systems reviewed & are unremarkable except as noted in HPI and below Constitutional: Constitutional: Reports as per HPI, Reports no additional constitutional complaints, Reports chills and Reports weakness Eyes: Eyes: Reports as per HPI and Reports no additional eye complaints ENT: Reports system reviewed and no additional complaints, except as documented and Reports as per HPI Cardiovascular: Cardiovascular: Reports as per HPI and Reports no additional cardiovascular complaints Respiratory: Respiratory: Reports as per HPI, Reports no additional respiratory complaints, Reports cough, Reports dyspnea and Reports wheezing Gastrointestinal: Gastrointestinal: Reports as per HPI and Reports no additional gastrointestinal complaints Genitourinary: Genitourinary: Reports no additional male genitourinary complaints and Reports as per HPI Musculoskeletal: Musculoskeletal: Reports no additional musculoskeletal complaints and Reports as per HPI Integumentary/Breasts: Skin/Breast: Reports system reviewed and no additional complaints, except as docu and Reports as per HPI Neurologic: Reports system reviewed and no additional complaints, except as documented and Reports as per HPI Psychiatric: Psychiatric: Reports no additional psychiatric complaints and Reports as per HPI Endocrine: Endocrine: Reports no additional endocrine complaints and Reports as per HPI Hematologic/Lymphatic: Hematologic/Lymphatic: Reports no additional hematologic/lymphatic complaints and Reports as per HPI Allergic/Immunologic: Allergic/Immunologic: Reports no additional allergic/immunologic complaints and Reports as per HPI [facility] Past Medical History Medical History Peripheral vascular disease Hepatitis C Asthma exacerbation in COPD Exam Narrative: oxygen saturation of 98% on 3 L of O2. Respiratory rate of 24. Const: General: ill appearing Nutritional Appearance: thin Orientation/consciousness: patient oriented x3 Limitations: no limitations HENMT: Head: normal to inspection Ears: external ears normal Face/Nose/Sinus: Normal external nose present Face and sinus: normal facial exam Mouth: Yes Normal oral and palatal mucosa present Throat: posterior oropharynx normal Eyes: Conjunctivae: conjunctivae normal Pupils: Equal, round and reactive pupils present EOM: EOMs intact bilaterally Direct Ophthalmoscopy: no photophobia Neck: Neck: normal visual inspection, no lymphadenopathy and no meningeal signs Chest: Other: Hyperinflated lung niño Resp: Auscultation: wheezes and diminished lung sounds Cardio: Rate: regular rate Rhythm: regular rhythm GI: GI Palp: Yes Soft to palpation Auscultation: normal bowel sounds Other: no tenderness/ rigidity /rebound : General: Yes no CVA tenderness Back/Spine/Pelvis: Back: no CVA tenderness Skin: General skin exam: normal color Rashes: no rashes Wounds: no wounds Neuro: General: patient oriented x3, moves all extremities, no meningeal signs, no focal motor deficits and CN's II-XI intact bilaterally Cranial nerves: Yes Nystagmus not present Speech: normal speech Extrem: General: normal to inspection and edema Psych: Mental Status: mental status grossly normal Affect: normal affect Attitude: cooperative Course Course Emergency Course: COPD exacerbation/ Chronic respiratory failure-- patient complains of chronic shortness of breath, cough with mucopurulent sputum and pleuritic chest pain. Chest x-ray did not show any acute findings. Patient has normal troponin and a normal D-dimer. ProBNP was noted to be 777. will treat with Zithromax. Patient is not compliant with his medications. EKG did not show any acute changes. Unchanged from a prior EKG done on 07/13/2024. Vital Signs Vital signs: Vital Signs Temperature 36.6 C 02/01/25 12:00 Pulse Rate 85 02/01/25 12:00 Respiratory Rate 24 H 02/01/25 12:00 Blood Pressure 141/77 H 02/01/25 12:00 Pulse Oximetry 98 02/01/25 12:00 Oxygen Delivery Nasal Cannula 02/01/25 12:00 Oxygen Flow Rate 3 02/01/25 12:00 Temperature 36.6 C 02/01/25 12:00 Pulse Rate 62 02/01/25 13:16 Respiratory Rate 17 02/01/25 13:16 Blood Pressure 134/68 02/01/25 13:15 Pulse Oximetry 100 02/01/25 13:16 Oxygen Delivery Nasal Cannula 02/01/25 13:15 Oxygen Flow Rate 3 02/01/25 13:15 MDM - SOB/Dyspnea MDM Narrative Medical decision making narrative: COPD exacerbation Differential Diagnosis Differential diagnosis: Likely congestive heart failure Medical Records Attestation: I reviewed the patient's medical records. Lab Data Attestation: I reviewed the patient's lab results. 02/01/25 12:55 02/01/25 12:55 Labs: Lab Results 02/01/25 Range/Units 12:55 WBC 3.3 L (4.8-10.8) K/mm3 RBC 3.84 L (4.70-6.10) M/mm3 Hgb 12.0 L (14.0-18.0) g/dL Hct 37.5 L (40.0-54.0) % MCV 97.7 (78.0-102.0) fL MCH 31.3 H (27.0-31.0) pg MCHC 32.0 (32-36) g/dL RDW 13.1 (11.6-14.4) % Plt Count 155 (150-420) K/mm3 MPV 10.0 (8.7-11.0) fl Immature Gran % (Auto) Not Reportable Neut % (Auto) Not Reportable Lymph % (Auto) Not Reportable Edwards % (Auto) Not Reportable Eos % (Auto) Not Reportable Baso % (Auto) Not Reportable Lymph # (Auto) Not Reportable Edwards # (Auto) Not Reportable Eos # (Auto) Not Reportable Baso # (Auto) Not Reportable Abs Immat Gran (auto) Not Reportable Absolute Neuts (auto) Not Reportable Absolute Nucleated RBC Not Reportable Total Counted 100 Neutrophils % (Manual) 58 (46-73) % Band Neutrophils % 0 (0-6) % Lymphocytes % (Manual) 33 (18-44) % Monocytes % (Manual) 9 (3-9) % Nucleated RBC % Not Reportable Abs Neuts (Manual) 1.91 (1.3-6.7) K/mm3 Abs Lymphs (Manual) 1.08 L (1.1-4.5) K/mm3 Abs Monocytes (Manual) 0.29 (0.1-0.90) K/mm3 Platelet Estimate Adequate (Adequate) Schistocytes Not Reportable D-Dimer 0.35 (0.19-0.50) mg/L Sodium 139 (137-145) mmol/L Potassium 4.0 (3.4-5.0) mmol/L Chloride 102 (98-107) mmol/L Carbon Dioxide 31 H (22-30) mmol/L Anion Gap 6 (4-12) mmol/L BUN 19 (9-20) mg/dL Creatinine 0.94 (0.7-1.3) mg/dL Estim Creat Clear Calc 53 ml/min Estimated GFR > 60 (59 - ) Glucose 120 H (65-110) mg/dL Calculated Osmolality 291 (285-295) mOsm/kg Lactic Acid 1.1 (0.4-2.0) mmol/L Calcium 8.9 (8.4-10.2) mg/dL Total Bilirubin 0.3 (0.2-1.3) mg/dL AST 41 (17-59) U/L ALT 36 (6-50) U/L Alkaline Phosphatase 128 H (38-126) U/L Total Creatine Kinase 75 (55-170) U/L Troponin I < 0.012 (0.000-0.034) ng/mL NT-Pro-B Natriuret Pep 777 H (19.9-100) pg/mL Total Protein 6.5 (6.3-8.2) g/dL Albumin 3.6 (3.5-5.1) g/dL ECG Data EKG #1: ECG completion date: 02/01/25 ECG completion time: 12:53 Interpretation: normal sinus rhythm. Old septal infarct. The flank/infection in anterior leads. S1-S2 S3. No ST elevation. Discharge Plan Discharge Clinical Impression: COPD exacerbation Patient Disposition: Home Condition: Stable Instructions: Antibiotic Form, COPD (Chronic Obstructive Pulmonary Disease) (ED) Patient Language: British Prescriptions: New azithromycin [Zithromax] 250 mg tablet See Rx Instructions .ROUTE .COMPLEX Qty: 6 0RF Rx Instructions: For 250 mg dose pack: take 500 mg today (day 1), then 250 mg for 4 days (days 2-5) No Action naloxone 10 mg/0.4 mL auto-injector 2 mg subcut Q3M Qty: 4 0RF Rx Instructions: until desired response albuterol sulfate [Ventolin HFA] 90 mcg/actuation HFA aerosol inhaler 1 puff inhalation QID PRN (Reason: shortness of breath or wheezing) Qty: 8.5 0RF atorvastatin 20 mg tablet 20 mg PO QPM albuterol sulfate 2.5 mg /3 mL (0.083 %) solution for nebulization 2.5 mg inhalation Q4-6H theophylline 400 mg tablet extended release 24 hr 400 mg PO DAILY calcium polycarbophil [Fiber (calcium polycarbophil)] 625 mg tablet 625 mg PO DAILY omeprazole 20 mg capsule,delayed release(DR/EC) 20 mg PO DAILY montelukast 10 mg tablet 10 mg PO DAILY Follow-up/Referrals: Shadi Farley MD [Primary Care Provider, Internal Medicine] Time of Disposition: 13:40
--- NOTE | 2025-02-01 12:43 | ECG_ITS ---
Test Date: 2025-02-01 12:53:18 Measurements Intervals [place] Rate: 64 P: 77 OR: 156 QRS: 227 QRSD: 99 T: 71 QT: 414 QTc: 430 Interpretive Statements SINUS RHYTHM INDETERMINATE AXIS S1-S2-S3 PATTERN, CONSISTENT WITH PULMONARY DISEASE, RVH, OR NORMAL VARIANT PATTERN CONSISTENT WITH PULMONARY DISEASE INCOMPLETE RIGHT BUNDLE BRANCH BLOCK [90+ ms QRS DURATION, TERMINAL R IN V1/V2, 40+ ms S IN I/aVL/V4/V5/V6] SEPTAL MYOCARDIAL INFARCTION , OF INDETERMINATE AGE [40+ ms Q WAVE IN V1/V2] ABNORMAL ECG Compared to ECG 07/13/2024 10:48:30 Right ventricular hypertrophy now present Myocardial infarct finding now present Right-axis deviation no longer present Electronically Signed On 02-01-2025 15:00:23 CDT by Vishal Otto M.D.
[2025-02-01] MEDS: IPRATROPIUM 0.5 MG/ALBUTEROL SULFATE 2.5 MG AMPUL.NEB 3 ML INHALATION (12:55)
[2025-02-01 13:00] LABS: Hematocrit 37.5 % (40.0-54.0); Hemoglobin 12.0 g/dL (14.0-18.0); Mean Corpuscular HGB Conc 32.0 g/dL (32-36); Mean Corpuscular Hemoglobin 31.3 pg (27.0-31.0); Mean Corpuscular Volume 97.7 fL (78.0-102.0); Platelet Count Result 155 K/mm3 (150-420); Red Blood Count 3.84 M/mm3 (4.70-6.10); White Blood Count 3.3 K/mm3 (4.8-10.8)
[2025-02-01 13:12] LABS: Alanine Aminotransferase 36 U/L (6-50); Albumin Level 3.6 g/dL (3.5-5.1); Alkaline Phosphatase 128 U/L (38-126); Anion Gap 6 mmol/L (4-12); Aspartate Amino Transferase 41 U/L (17-59); Bilirubin,Total 0.3 mg/dL (0.2-1.3); Blood Urea Nitrogen 19 mg/dL (9-20); Calcium 8.9 mg/dL (8.4-10.2); Carbon Dioxide 31 mmol/L (22-30); Chloride 102 mmol/L (98-107); Creatine Kinase 75 U/L (55-170); Estimated CRCL calculation 53 ml/min; Estimated Glomerular Filt Rate > 60; Glucose 120 mg/dL (65-110); Osmolality Calculated 291 mOsm/kg (285-295); Potassium 4.0 mmol/L (3.4-5.0); Sodium 139 mmol/L (137-145); Total Protein 6.5 g/dL (6.3-8.2)
[2025-02-01 13:21] LABS: Band Neutrophils Percent 0 % (0-6); Lymphocytes Absolute Manual 1.08 K/mm3 (1.1-4.5); Lymphocytes Percent Manual 33 % (18-44); Monocytes Absolute Manual 0.29 K/mm3 (0.1-0.90); Monocytes Percent Manual 9 % (3-9); NT Pro B Type Natriuretic Pept 777 pg/mL (19.9-100); Neutrophils Absolute Manual 1.91 K/mm3 (1.3-6.7); Neutrophils Percent Manual 58 % (46-73); Total Cells Counted 100
[2025-02-01 13:33] LABS: Troponin I < 0.012 ng/mL (0.000-0.034)
--- OUTSIDE RECORDS SUMMARY | 2025-02-01 13:38 | XMS_ITS | Clinical Summary ---
Author Organization [facility] Address [address] [place] [address] Care Team Providers Care Steel Erector Name Role Phone Shadi Farley MD Primary Care Provide r Alise Olguin NP Unavailable Allergies No known active allergies Medications tiotropium (SPIRIVA) 18 mcg per inhalation capsule Place 1 puff (1 capsule total) into inhaler and inhale daily Active theophylline (UNIPHYL) 400 mg 24 hr tablet Take 1 tablet (400 mg total) by mouth daily Active montelukast (SINGULAIR) 10 mg tablet Take 1 tablet (10 mg total) by mouth nightly Active budesonide (PULMICORT) 0.5 mg/2 mL nebulizer solution Take 2 mL (0.5 mg total) by nebulization daily Rinse mouth with water after use. Do not swallow. Active docusate sodium (COLACE) 100 mg capsuleIndicati ons:constipatio n Take 1 capsule (100 mg total) by mouth 2 (two) times a day Active aspirin 81 mg enteric coated tablet Take 1 tablet (81 mg total) by mouth daily Active atorvastatin (LIPITOR) 20 mg tablet Take 1 tablet (20 mg total) by mouth daily Active albuterol HFA (PROVENTIL HFA,VENTOLIN HFA,PROAIR HFA) 90 mcg/actuation inhaler Inhale 2 puffs every 6 (six) hours as needed for wheezing Active arformoteroL (BROVANA) 15 mcg/2 mL nebulizer solution Take 2 mL (15 mcg total) by nebulization 2 (two) times a day Active benzonatate (TESSALON) 100 mg capsuleIndicati ons:Cough Take 1 capsule (100 mg total) by mouth every 8 (eight) hours as needed for cough 20 capsule 5 Active guaiFENesin ER (MUCINEX) 600 mg 12 hr tablet Take 1 tablet (600 mg total) by mouth every 12 (twelve) hours as needed for cough 60 tablet [address] (PROTONIX) 40 mg EC tabletIndicatio ns:Treatment of Non-Bleeding Gastric Disorder Take 1 tablet (40 mg total) by mouth 2 (two) times a day 60 tablet 1 5 08/03/19 26 Active Active Problems Problem Noted Date Diagnosed Date Precordial chest pain 08/08/2024 Acute on chronic heart failu re with preserved ejection fraction 08/08/2024 Sepsis, due to unspecified o rganism, unspecified whether acute organ dysfunction present 07/27/2024 Assessment & Plan (07/27/2024 10:23 PM DISEASE CONTROL INSPECTOR): Secondary to pneumonia etiology WBC 23.9K, lactic acid 2.8, heart rate 104, respiratory rate 23, blood pressure 87/57 Repeat lactate level pending IV fluid IV antibiotic with Rocephin and azithromycin Pending follow-up of blood culture results x2 Throat culture pending Urine antigen markers pending IV drug user 07/27/2024 Assessment & Plan (07/27/2024 10:24 PM DISEASE CONTROL INSPECTOR): Long history of IV drug use referred, most recently having overdose several weeks ago as noted Prior HIV testing negative more than 1 year ago as referred by patient Patient requests HIV testing at this time --- pending for a.m. Pneumonia 07/27/2024 Assessment & Plan (07/27/2024 10:25 PM DISEASE CONTROL INSPECTOR): Noted on CT imaging No sign of respiratory compromise at time of assessment IV antibiotics as noted Pending follow-up of blood culture x2 Throat culture pending Urine for antigen markers pending Moderate protein malnutrition 07/27/2024 Assessment & Plan (07/27/2024 10:25 PM DISEASE CONTROL INSPECTOR): Weight loss referred by patient Physical examination identifies cachectic patient BMI 19.47 Pending assessment a TSH and F T4 levels Hyperglycemia 07/27/2024 Assessment & Plan (07/27/2024 10:26 PM DISEASE CONTROL INSPECTOR): Glucose level over 200 noted upon arrival A1c level and on testing pending Fingersticks q.a.c. and HS with sliding scale coverage Further adjustments to management to be coordinated Body mass index 25.0-25.9, adult 11/20/2023 Hepatitis C virus infection 11/20/2023 Chronic obstructive pulmonary disease (COPD) Asthma in adult, unspecified asthma severity, un complicated 11/20/2023 Chronic abdominal pain 11/20/2023 Vascular disease 11/20/2023 Personal history of other diseases of family physician y system 11/20/2023 Surgical History Surgery Date Site/Laterality Comments COLONOSCOPY CARDIAC CATHETERIZATION N/A Medical History Medical History Date Comments Peripheral vascular disease 2006 COPD (chronic obstructive pulmonary disease) Hepatitis C Sharma esophagus Hyperlipidemia Lung disease Coronary artery disease Hypothyroidism Family History Medical History Relation Name Comments Heart disease Father Stroke Father Lung cancer Mother Relation Name Status Comments Father Mother Social History Tobacco Use Types Packs/Day Years Used Date Smoking Tobacco: Former Cigarettes Tobacco Cessation:Counseling Given: Not Answered Alcohol Use Standard Drinks/Week Comments Not Currently 0 (1 standard drink = 0.6 oz pure alcohol) alcoholic, last drink summer 2023 [facility] Utilities Answer Date Recorded In the past 12 months has [employer], gas, oil, or water [employer] threatened to shut off services in your home? No 07/28/2024 Social Connection and Isolation Panel Answer Date Recorded In a typical week, how many times do you talk on the phone with family, friends, or neighbors? More than three times a week 07/28/2024 How often do you get togethe r with friends or relatives? More than three times a week 07/28/2024 How often do you attend chur ch or buddhist services? 1 to 4 times per year 07/28/2024 Do you belong to any clubs o r organizations such as jehovah's witness groups, unions, fraternal or athletic groups, or school groups? No 07/28/2024 How often do you attend meet ings of the clubs or organizations you belong to? Never 07/28/2024 Are you , , di vorced, , never , or living with a partner? Never 07/28/2024 Overall Financial Resource Strain (CARDIA) Answe r Date Recorded How hard is it for you to pa y for the very basics like food, housing, medical care, and heating? Not very hard 07/28/2024 Hunger Vital Sign Answer Date Recorded Within the past 12 months, y ou worried that your food would run out before you got the money to buy more. Never true 07/28/19 25 Within the past 12 months, t he food you bought just didn't last and you didn't have money to get more. Never true 07/28/2024 PRAPARE - Transportation Answer Date Re corded In the past 12 months, has l ack of transportation kept you from medical appointments or from getting medications? No 07/03 In the past 12 months, has l ack of transportation kept you from meetings, work, or from getting things needed for daily living? No 07/28/2024 Housing Stability Vital Sign Answer Martin e Recorded In the last 12 months, was t here a time when you were not able to pay the mortgage or rent on time? No 07/28/2024 In the past 12 months, how m any times have you moved where you were living? 0 07/28/2024 At any time in the past 12 m [facility], were you homeless or living in a usp (including now)? No 07/28/2024 Personal Safety Answer Date Recorded Have you ever been in or are you currently in a harmful physical or emotional relationship or is someone making you feel afraid or unsafe? Denies 07/27/2024 Sex and Gender Information Value Date Recorded Sex Assigned at Not on file Legal Sex Male 9:43 AM DISEASE CONTROL INSPECTOR Gender Identity Not on file Sexual Orientation Not on file Obstetrics History Last Filed Vital Signs Vital Sign Reading Time Taken Comments Blood Pressure 96/58 08/02/2024 3:09 PM DISEASE CONTROL INSPECTOR Pulse 90 08/02/2024 3:09 PM DISEASE CONTROL INSPECTOR Temperature 36.6 C (97.9 F) 08/02/2024 11:19 AM DISEASE CONTROL INSPECTOR Respiratory Rate 16 08/02/2024 3:09 PM DISEASE CONTROL INSPECTOR Oxygen Saturation 100% 08/02/2024 3:09 PM DISEASE CONTROL INSPECTOR Inhaled Oxygen Concentration - - Weight 53.1 kg (117 lb) 07/27/2024 10:12 PM DISEASE CONTROL INSPECTOR Height 165.1 cm (5' 5) 07/28/2024 12:30 PM DISEASE CONTROL INSPECTOR Body Mass Index 19.47 07/27/2024 10:12 PM DISEASE CONTROL INSPECTOR Plan of Treatment Health Maintenance Due Date Last Done Comments Colon Cancer Screening-Colonoscopy 1960 Depression Screening 1960 Prostate Cancer Screening-PSA 1960 DTaP/Tdap/Td Vaccine (1 - Tdap) 1971 Hepatitis B Screening 1978 Regular Well Visit/Exam 18-64 1978 Pneumococcal vaccine <65 (1 of 2 - PCV) 1979 Zoster Vaccine (1 of 2) 2010 Covid-19 Vaccine (3 - season) 2025, 07/28/2020 Influenza Vaccine (#1) 2025 Hepatitis C Screening Completed 11/20/2023, 024 Insurance [facility] Advance Directives For more information, please contact: [phone] * Full Code (Latest Code Status on File) Date Activated Date Inactivated Comments 07/27/2024 10:52 PM 08/02/2024 8:40 PM Care Teams Steel Erector Relationship Specialty Start Date End Date Shadi Farley MD [address] [place] [address] PCP - General Family Medicine 08/21/23 Alise Olguin NP [id number] [facility] [address] [address] Nurse Practitioner Cardiology 08/02/24
--- OUTSIDE RECORDS SUMMARY | 2025-02-01 13:38 | XMS_ITS | Clinical Summary ---
Author Organization [facility] Address [facility] [place] [address] Care Team Providers Care Beadworker Name Role Phone Dipti Rosario MD Primary Care Provider [phone] Social History Tobacco Use Types Packs/Day Years Used Date Smoking Tobacco: Smoker, Current Status Unknown Sex and Gender Information Value Date Recorded Sex Assigned at Male 07/01/2024 3:28 PM WATERSHED MANAGER Legal Sex Male 7:51 PM CDT Gender [...] 10:19 AM CDT Height 165.1 cm (5' 5) 01/08/2010 10:19 AM CDT Body Mass Index 22.8 01/08/2010 10:19 AM CDT Plan of Treatment Health Maintenance Due Date Last Done Comments Colorectal Cancer Screening Colonoscopy (10 Years) 1960 Annual Physical 1963 DTaP, Tdap and Td Vaccines ( 1 - Tdap) 1979 Pneumococcal Vaccine: 50+ Years (1 of 2 - PCV) 1979 Zoster Vaccines (1 of 2) 2010 COVID-19 Vaccine (3 - 2023-2 5 season) 2024 08/25/2020, 07/28/2020 RSV Immunization or 60+ Years (1 - [...] patient's age to complete this topic Insurance [employer] Care Teams Beadworker Relationship Specialty Start Date End Date Dipti Rosario MD [address] [place] [address] PCP - General INTERNAL MEDICINE 04/06/24
== END 2025-02-01 13:43 | disposition home or self-care (01) ==
PROVIDERS: Emergency Provider Internal Medicine Critical Care Medicine; PCP Family Medicine
DX: J44.1 Chronic obstructive pulmonary disease with (acute) exacerbation (principal); Z99.81 Dependence on supplemental oxygen; Z79.899 Other long term (current) drug therapy
CPT/HCPCS: 36415; 71045; 80053; 82550; 83605; 83880; 84484; 85025; 85380; 93005; 94640; 99284

== ENCOUNTER 2025-02-08 12:12 | Outpatient (CLI) | payer OTHER, SELFPAY ==
[2025-02-08 12:29] LABS: Hematocrit 40.0 % (40.0-54.0); Hemoglobin 13.0 g/dL (14.0-18.0); Immature Granulocyte Percent A 0.2 % (0.0-0.0); Lymphocytes Absolute Auto 1.29 K/mm3 (1.10-4.50); Mean Corpuscular HGB Conc 32.5 g/dL (32-36); Mean Corpuscular Hemoglobin 31.6 pg (27.0-31.0); Mean Corpuscular Volume 97.1 fL (78.0-102.0); Nucleated Red Blood Cells Absolute Auto 0.00 K/mm3 (0.00-0.00); Nucleated Red Blood Cells Perc 0.0 % (0-0.0); Platelet Count Result 213 K/mm3 (150-420); Red Blood Count 4.12 M/mm3 (4.70-6.10); White Blood Count 5.1 K/mm3 (4.8-10.8)
[2025-02-08 12:56] LABS: Alanine Aminotransferase 36 U/L (6-50); Albumin Level 4.2 g/dL (3.5-5.1); Alkaline Phosphatase 157 U/L (38-126); Anion Gap 9 mmol/L (4-12); Aspartate Amino Transferase 43 U/L (17-59); Bilirubin,Total 0.5 mg/dL (0.2-1.3); Blood Urea Nitrogen 24 mg/dL (9-20); Calcium 9.4 mg/dL (8.4-10.2); Carbon Dioxide 28 mmol/L (22-30); Chloride 102 mmol/L (98-107); Estimated Glomerular Filt Rate > 60; Glucose 120 mg/dL (65-110); Osmolality Calculated 293 mOsm/kg (285-295); Potassium 4.5 mmol/L (3.4-5.0); Sodium 139 mmol/L (137-145); Total Protein 7.1 g/dL (6.3-8.2)
--- OUTSIDE RECORDS SUMMARY | 2025-02-08 13:01 | XMS_ITS | Clinical Summary ---
Author Organization [facility] Building [facility] Address [address] [place] [address] Care Team Providers Care Leather Craftsman Name Role Phone Shadi Farley MD Primary [...] 07/27/2024 Assessment & Plan (07/27/2024 10:23 PM INSPECTOR INTEGRATED CIRCUITS): Secondary to pneumonia etiology WBC 23.9K, lactic acid 2.8, heart rate 104, respiratory rate 23, blood pressure 87/57 Repeat lactate level pending IV fluid IV antibiotic with Rocephin and azithromycin Pending follow-up of blood culture results x2 Throat culture pending Urine antigen markers pending IV drug user 07/27/2024 Assessment & Plan (07/27/2024 10:24 PM INSPECTOR INTEGRATED CIRCUITS): Long history of IV drug use referred, most recently having overdose several weeks ago as noted Prior HIV testing negative more than 1 year ago as referred by patient Patient requests HIV testing at this time --- pending for a.m. Pneumonia 07/27/2024 Assessment & Plan (07/27/2024 10:25 PM INSPECTOR INTEGRATED CIRCUITS): Noted on CT imaging No sign of respiratory compromise at time of assessment IV antibiotics as noted Pending follow-up of blood culture x2 Throat culture pending Urine for antigen markers pending Moderate protein malnutrition 07/27/2024 Assessment & Plan (07/27/2024 10:25 PM INSPECTOR INTEGRATED CIRCUITS): Weight loss referred by patient Physical examination identifies cachectic patient BMI 19.47 Pending assessment a TSH and F T4 levels Hyperglycemia 07/27/2024 Assessment & Plan (07/27/2024 10:26 PM INSPECTOR INTEGRATED CIRCUITS): Glucose level over 200 noted upon arrival [...] 11/20/2023 Personal history of other diseases of general 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 Utilities Answer Date Recorded In the past 12 months has [employer], gas, oil, or water [employer] [employer] threatened to shut off services in your [...] often do you attend chur ch or sikh services? 1 to 4 times per year [...] any time in the past 12 m [facility], were you homeless or living in a senior care (including now)? No 07/28/2024 Personal Safety Answer Date Recorded Have you ever been in or are you currently in a harmful physical or emotional relationship or is someone making you feel afraid or unsafe? Denies 07/27/2024 Sex and Gender Information Value Date Recorded Sex Assigned at Not on file Legal Sex Male 9:43 AM INSPECTOR INTEGRATED CIRCUITS Gender Identity Not on file Sexual Orientation Not on file Obstetrics History Last Filed Vital Signs Vital Sign Reading Time Taken Comments Blood Pressure 96/58 08/02/2024 3:09 PM INSPECTOR INTEGRATED CIRCUITS Pulse 90 08/02/2024 3:09 PM INSPECTOR INTEGRATED CIRCUITS Temperature 36.6 C (97.9 F) 08/02/2024 11:19 AM INSPECTOR INTEGRATED CIRCUITS Respiratory Rate 16 08/02/2024 3:09 PM INSPECTOR INTEGRATED CIRCUITS Oxygen Saturation 100% 08/02/2024 3:09 PM INSPECTOR INTEGRATED CIRCUITS Inhaled Oxygen Concentration - - Weight 53.1 kg (117 lb) 07/27/2024 10:12 PM INSPECTOR INTEGRATED CIRCUITS Height 165.1 cm (5' 5) 07/28/2024 12:30 PM INSPECTOR INTEGRATED CIRCUITS Body Mass Index 19.47 07/27/2024 10:12 PM INSPECTOR INTEGRATED CIRCUITS Plan of Treatment Health Maintenance Due Date [...] Hepatitis C Screening Completed 11/20/2023, 024 Insurance [facility] Advance Directives For more information, please contact: [phone] * Full Code (Latest Code Status on File) Date Activated Date Inactivated Comments 07/27/2024 10:52 PM 08/02/2024 8:40 PM Care Teams Leather Craftsman Relationship Specialty Start Date End Date Shadi Farley MD [address] [place] [address] PCP - General Family Medicine 08/21/23 Alise Olguin NP [address] [place] [address] [address] Nurse Practitioner Cardiology 08/02/24
[2025-02-08 13:07] LABS: GGT < 10.0 U/L (15-73)
[2025-02-08 13:27] LABS: Thyroid Stimulating Hormone 2.780 uIU/mL (0.465-4.680)
== END 2025-02-08 12:13 | disposition home or self-care (01) ==
PROVIDERS: PCP Family Medicine; Visit Provider Family Medicine
DX: R94.6 Abnormal results of thyroid function studies (principal)
CPT/HCPCS: 36415; 80053; 82977; 84443; 85025; 86803

== ENCOUNTER 2025-02-08 13:33 | Emergency (ER) | payer OTHER, SELFPAY ==
[2025-02-08] VITALS (9 sets, daily range): BP systolic 104–143; BP diastolic 71–82; PULSE 60–89; RESP 18–20; TEMP 36.6–36.8; O2SAT 95–100
--- NOTE | ~2025-02-08 | XR_ITS ---
XR chest 1V portable 02/08/2025 14:13 Indication: Shortness of breath Procedure: AP portable chest Comparison: Comparison to multiple prior studies sequentially, with oldest reviewed study dated 05/02/2024. Findings: Heart size normal. No focal air space disease, pulmonary edema, pleural effusion or suspected pneumothorax. The lungs are hyperinflated which is consistent with, but not diagnostic of chronic obstructive pulmonary disease. Impression: 1: No acute cardiopulmonary disease. Reviewed, dictated and finalized at location O. Impression: 1: No acute cardiopulmonary disease.
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
--- NOTE | 2025-02-08 13:42 | ECG_ITS ---
Test Date: 2025-02-08 13:50:31 Measurements Intervals [place] Rate: 74 P: 90 NC: 149 QRS: 204 QRSD: 102 T: 70 QT: 399 QTc: 444 Interpretive Statements SINUS RHYTHM PATTERN CONSISTENT WITH PULMONARY DISEASE POSSIBLE RIGHT VENTRICULAR HYPERTROPHY [SOME/ALL OF: PROMINENT R IN V1, LATE TRANSITION, RAD, LIZZIE, SSS] ABNORMAL ECG Compared to ECG 02/01/2025 12:53:18 NO SIGNIFICANT DIFFERENCE Electronically Signed On 02-08-2025 16:35:46 CDT by Andrew Padilla M.D.
[2025-02-08] MEDS: IPRATROPIUM 0.5 MG/ALBUTEROL SULFATE 2.5 MG AMPUL.NEB 3 ML INHALATION (13:53)
[2025-02-08 14:12] LABS: HCO3 ABG 22.4 mmol/L (23-29); Oxygen Saturation ABG 92.7 % (95-97); PCO2 ABG 37.6 mmHg (35-45); PO2 ABG 69.2 mmHg (80-90)
--- OUTSIDE RECORDS SUMMARY | 2025-02-08 14:12 | XMS_ITS | Clinical Summary ---
Author Organization [facility] Medical Office Building B Address [address] [place] [address] Care Team Providers Care Scrap Iron Loader Name Role Phone Shadi Farley MD Primary [...] 07/27/2024 Assessment & Plan (07/27/2024 10:23 PM POWER PROJECT MANAGER): Secondary to pneumonia etiology WBC 23.9K, lactic acid 2.8, heart rate 104, respiratory rate 23, blood pressure 87/57 Repeat lactate level pending IV fluid IV antibiotic with Rocephin and azithromycin Pending follow-up of blood culture results x2 Throat culture pending Urine antigen markers pending IV drug user 07/27/2024 Assessment & Plan (07/27/2024 10:24 PM POWER PROJECT MANAGER): Long history of IV drug use referred, most recently having overdose several weeks ago as noted Prior HIV testing negative more than 1 year ago as referred by patient Patient requests HIV testing at this time --- pending for a.m. Pneumonia 07/27/2024 Assessment & Plan (07/27/2024 10:25 PM POWER PROJECT MANAGER): Noted on CT imaging No sign of respiratory compromise at time of assessment IV antibiotics as noted Pending follow-up of blood culture x2 Throat culture pending Urine for antigen markers pending Moderate protein malnutrition 07/27/2024 Assessment & Plan (07/27/2024 10:25 PM POWER PROJECT MANAGER): Weight loss referred by patient Physical examination identifies cachectic patient BMI 19.47 Pending assessment a TSH and F T4 levels Hyperglycemia 07/27/2024 Assessment & Plan (07/27/2024 10:26 PM POWER PROJECT MANAGER): Glucose level over 200 noted upon arrival [...] 11/20/2023 Personal history of other diseases of 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 1 to 4 times per year 07/28/2024 Do you belong to any clubs o r organizations such as sikh groups, unions, fraternal or athletic groups, or [...] any time in the past 12 m [facility], were you homeless or living in a [place] health care facility (including now)? No 07/28/2024 Personal Safety Answer Date Recorded Have you ever been in or are you currently in a harmful physical or emotional relationship or is someone making you feel afraid or unsafe? Denies 07/27/2024 Sex and Gender Information Value Date Recorded Sex Assigned at Not on file Legal Sex Male 9:43 AM POWER PROJECT MANAGER Gender Identity Not on file Sexual Orientation Not on file Obstetrics History Last Filed Vital Signs Vital Sign Reading Time Taken Comments Blood Pressure 96/58 08/02/2024 3:09 PM POWER PROJECT MANAGER Pulse 90 08/02/2024 3:09 PM POWER PROJECT MANAGER Temperature 36.6 C (97.9 F) 08/02/2024 11:19 AM POWER PROJECT MANAGER Respiratory Rate 16 08/02/2024 3:09 PM POWER PROJECT MANAGER Oxygen Saturation 100% 08/02/2024 3:09 PM POWER PROJECT MANAGER Inhaled Oxygen Concentration - - Weight 53.1 kg (117 lb) 07/27/2024 10:12 PM POWER PROJECT MANAGER Height 165.1 cm (5' 5) 07/28/2024 12:30 PM POWER PROJECT MANAGER Body Mass Index 19.47 07/27/2024 10:12 PM POWER PROJECT MANAGER Plan of Treatment Health Maintenance Due Date [...] Advance Directives For more information, please contact: [phone] * Full Code (Latest Code Status on File) Date Activated Date Inactivated Comments 07/27/2024 10:52 PM 08/02/2024 8:40 PM Care Teams Scrap Iron Loader Relationship Specialty Start Date End Date Shadi Farley MD [address] [place] [address] PCP - General Family Medicine 08/21/23 Alise Olguin NP [address] [place] [address] Nurse Practitioner Cardiology 08/02/24
--- OUTSIDE RECORDS SUMMARY | 2025-02-08 14:12 | XMS_ITS | Clinical Summary ---
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
[2025-02-08 14:15] LABS: Liters per Minute 0.0 LPM; Modified Allen's Test Pass; Site Drawn LEFT RADIAL
[2025-02-08 14:37] LABS: NT Pro B Type Natriuretic Pept 4350 pg/mL (19.9-100)
[2025-02-08 14:40] LABS: Troponin I 0.017 ng/mL (0.000-0.034)
[2025-02-08 14:51] LABS: Influenza A QL RT-PCR Negative (Negative); Influenza B QL RT-PCR Negative (Negative); RSV RNA, RT-PCR Negative (Negative); SARS-CoV-2 RNA PCR Negative (Negative)
--- OUTSIDE RECORDS SUMMARY | 2025-02-08 15:05 | XMS_ITS | Clinical Summary ---
Author Organization [facility] Address [facility] [place] [address] Care Team Providers Care Supervisor Electrolytic Tinning Name Role Phone Dipti Rosario MD Primary Care Provider [phone] Social History Tobacco Use Types Packs/Day Years Used Date Smoking Tobacco: Smoker, Current Status Unknown Sex and Gender Information Value Date Recorded Sex Assigned at Male 07/01/2024 3:28 PM TELEPHONE CLERK Legal Sex Male 7:51 PM CDT Gender [...] patient's age to complete this topic Insurance [employer] Care Teams Supervisor Electrolytic Tinning Relationship Specialty Start Date End Date Dipti Rosario MD [address] [place] [address] PCP - General INTERNAL MEDICINE 04/06/24
--- OUTSIDE RECORDS SUMMARY | 2025-02-08 15:05 | XMS_ITS | Clinical Summary ---
Author Organization [facility] Medical Office Building [facility] Address [address] [place] [address] Care Team Providers Care Precast Concrete Ironworker Name Role Phone Shadi Farley MD Primary [...] 07/27/2024 Assessment & Plan (07/27/2024 10:23 PM MIDDLE SCHOOL SCIENCE TEACHER): Secondary to pneumonia etiology WBC 23.9K, lactic acid 2.8, heart rate 104, respiratory rate 23, blood pressure 87/57 Repeat lactate level pending IV fluid IV antibiotic with Rocephin and azithromycin Pending follow-up of blood culture results x2 Throat culture pending Urine antigen markers pending IV drug user 07/27/2024 Assessment & Plan (07/27/2024 10:24 PM MIDDLE SCHOOL SCIENCE TEACHER): Long history of IV drug use referred, most recently having overdose several weeks ago as noted Prior HIV testing negative more than 1 year ago as referred by patient Patient requests HIV testing at this time --- pending for a.m. Pneumonia 07/27/2024 Assessment & Plan (07/27/2024 10:25 PM MIDDLE SCHOOL SCIENCE TEACHER): Noted on CT imaging No sign of respiratory compromise at time of assessment IV antibiotics as noted Pending follow-up of blood culture x2 Throat culture pending Urine for antigen markers pending Moderate protein malnutrition 07/27/2024 Assessment & Plan (07/27/2024 10:25 PM MIDDLE SCHOOL SCIENCE TEACHER): Weight loss referred by patient Physical examination identifies cachectic patient BMI 19.47 Pending assessment a TSH and F T4 levels Hyperglycemia 07/27/2024 Assessment & Plan (07/27/2024 10:26 PM MIDDLE SCHOOL SCIENCE TEACHER): Glucose level over 200 noted upon arrival [...] 11/20/2023 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 1 to 4 times per year 07/28/2024 Do you belong to any clubs o r organizations such as confucianism groups, unions, fraternal or athletic groups, or [...] any time in the past 12 m [facility], were you homeless or living in a long term (including now)? No 07/28/2024 Personal Safety Answer Date Recorded Have you ever been in or are you currently in a harmful physical or emotional relationship or is someone making you feel afraid or unsafe? Denies 07/27/2024 Sex and Gender Information Value Date Recorded Sex Assigned at Not on file Legal Sex Male 9:43 AM MIDDLE SCHOOL SCIENCE TEACHER Gender Identity Not on file Sexual Orientation Not on file Obstetrics History Last Filed Vital Signs Vital Sign Reading Time Taken Comments Blood Pressure 96/58 08/02/2024 3:09 PM MIDDLE SCHOOL SCIENCE TEACHER Pulse 90 08/02/2024 3:09 PM MIDDLE SCHOOL SCIENCE TEACHER Temperature 36.6 C (97.9 F) 08/02/2024 11:19 AM MIDDLE SCHOOL SCIENCE TEACHER Respiratory Rate 16 08/02/2024 3:09 PM MIDDLE SCHOOL SCIENCE TEACHER Oxygen Saturation 100% 08/02/2024 3:09 PM MIDDLE SCHOOL SCIENCE TEACHER Inhaled Oxygen Concentration - - Weight 53.1 kg (117 lb) 07/27/2024 10:12 PM MIDDLE SCHOOL SCIENCE TEACHER Height 165.1 cm (5' 5) 07/28/2024 12:30 PM MIDDLE SCHOOL SCIENCE TEACHER Body Mass Index 19.47 07/27/2024 10:12 PM MIDDLE SCHOOL SCIENCE TEACHER Plan of Treatment Health Maintenance Due Date [...] Hepatitis C Screening Completed 11/20/2023, 024 Insurance [facility] Advance Directives For more information, please contact: [phone] * Full Code (Latest Code Status on File) Date Activated Date Inactivated Comments 07/27/2024 10:52 PM 08/02/2024 8:40 PM Care Teams Precast Concrete Ironworker Relationship Specialty Start Date End Date Shadi Farley MD [address] [place] [address] PCP - General Family Medicine 08/21/23 Alise Olguin NP [address] [place] [address] Nurse Practitioner Cardiology 08/02/24
== END 2025-02-08 15:21 | disposition home or self-care (01) ==
PROVIDERS: Emergency Provider Internal Medicine Critical Care Medicine; PCP Family Medicine
DX: I50.9 Heart failure, unspecified (principal); J44.9 Chronic obstructive pulmonary disease, unspecified; B19.20 Unspecified viral hepatitis C without hepatic coma; Z99.81 Dependence on supplemental oxygen
CPT/HCPCS: 36415; 36600; 71045; 82805; 83605; 83880; 84484; 87637; 93005; 94640; 96374; 99284; J2919

== ENCOUNTER 2025-02-21 10:32 | Outpatient (CLI) | payer OTHER, SELFPAY ==
--- NOTE | 2025-02-21 10:37 | ECHO_ITS ---
Patient Info Name: Eddie Kirkland Age: 64 years : 1960 Gender: Male Ht: 65 in Wt: 114 lbs BSA: 1.53 m2 HR: 65 bpm BP: 117 / 68 mmHg Technical Quality: Fair Exam Date: 02/21/2025 10:42 AM Patient Status: O Admit Date: 02/21/2025 Exam Type: CA echo doppler color flow Complete two-dimensional, color flow and Doppler transthoracic echocardiogram is performed. Manager Payment: Lucero Morales Attending Provider: Shadi Farley MD Summary 1. Complete two-dimensional, color flow and Doppler transthoracic echocardiogram is performed. 2. Left ventricular chamber dimension is normal. 3. Left ventricular systolic function is normal, estimated at 55-60. 4. E/e' 3 is not elevated. 5. Left atrial chamber dimension is mildly enlarged. 6. There is moderate aortic valve sclerosis. 7. There is trace aortic valve regurgitation. 8. There is mild to moderate mitral valve regurgitation. 9. There is mild tricuspid valve regurgitation. 10. Moderate pulmonary hypertension, estimated pulmonary arterial systolic pressure is 61 mmHg. Left Ventricle E/e' 3 is not elevated. Left ventricular chamber dimension is normal. Left ventricular systolic function is normal, estimated at 55-60. The left ventricular diastolic function is grade I diastolic dysfunction. Right Ventricle Right ventricular chamber dimension is normal. Right ventricular systolic function is normal. Left Atria Left atrial chamber dimension is mildly enlarged. Right Atria Right atrial chamber dimension is normal. Aortic Valve The aortic valve is trileaflet. There is moderate aortic valve sclerosis. There is no aortic valve stenosis. There is trace aortic valve regurgitation. Pulmonic Valve There is no pulmonic regurgitation. Mitral Valve There is no mitral valve stenosis. There is mild to moderate mitral valve regurgitation. Tricuspid Valve There is mild tricuspid valve regurgitation. Moderate pulmonary hypertension, estimated pulmonary arterial systolic pressure is 61 mmHg. Pericardium/Pleural There is no pericardial effusion. Inferior Vena Cava Normal inferior vena cava with >50% collapse upon inspiration consistent with normal right atrial pressure, 5 mmHg. Aorta The aortic root size at the sinus of Valsalva is normal. Left Ventricular Outflow Tract Name Value Normal LVOT 2D LVOT Diameter 2.0 cm LVOT Doppler LVOT Peak Velocity 96 cm/s LVOT Peak Gradient 4 mmHg LVOT Mean Gradient 2 mmHg LVOT VTI 17 cm LVOT Stroke Volume 54 ml LVOT CO 3.5 l/min LVOT CI 2.3 l/min/m2 Mitral Valve Name Value Normal MV Diastolic Function MV E Peak Velocity 32 cm/s MV A Peak Velocity 40 cm/s MV E/A 0.8 MV Decel Time (PW) 254 ms MV Annular TDI MV E/e' (Septal) 3.4 MV E/e' (Lateral) 3.0 MV E/e' (Average) 3.2 Tricuspid Valve Name Value Normal TV Regurgitation Doppler TR Peak Velocity 376 cm/s TR Peak Gradient 42 mmHg Estimated PAP/RSVP RA Pressure 5 mmHg <=5 PA Systolic Pressure 61 mmHg <36 RV Systolic Pressure 61 mmHg <36 Aortic Valve Name Value Normal AV Doppler AV Peak Velocity 152 cm/s AV Peak Gradient 9 mmHg AV Area (Cont Eq Gurjit) 2.0 cm2 AV DI (Gurjit) 0.63 AV Regurgitation 2D LVOT Area 3.2 cm2 Ventricles Name Value Normal LV Dimensions 2D/MM IVS Diastolic Thickness (2D) 0.9 cm 0.6-1.0 LVID Diastole (2D) 3.9 cm 4.2-5.8 LVIW Diastolic Thickness (2D) 0.8 cm 0.6-1.0 LVID Systole (2D) 2.5 cm 2.5-4.0 LVOT Diameter 2.0 cm LV Mass (2D Cubed) 94.22 g 88.00-224.00 LV Mass Index (2D Cubed) 61 g/m2 49-115 Relative Wall Thickness (2D) 0.40 <=0.42 LV Fractional Shortening/Ejection Fraction 2D/MM LV Fractional Shortening (2D) 37 % 25-43 LV EF (2D Teichholz) 67 % LV Diastolic Volume (4C MOD) 90 ml LV EF (4C MOD) 55 % LV Diastolic Length (4C) 7.8 cm LV Systolic Length (4C) 5.9 cm LV Stroke Volume (4C MOD) 49 ml Atria Name Value Normal LA Dimensions LA Volume (4C A-L) 52 ml LA Volume (BP A-L) 56 ml RA Dimensions RA Systolic Major Ward Length (4C) 4.8 cm 2.1-2.7 RA Area (4C) 19.4 cm2 <=18.0 Report Signatures
--- OUTSIDE RECORDS SUMMARY | 2025-02-21 11:22 | XMS_ITS | Clinical Summary ---
Author Organization [facility] Medical Office Building [address] Address [address] [place] [address] Care Team Providers Care Records Analysis Manager Name Role Phone Shadi Farley MD Primary [...] 07/27/2024 Assessment & Plan (07/27/2024 10:23 PM BAND ATTACHER): Secondary to pneumonia etiology WBC 23.9K, lactic acid 2.8, heart rate 104, respiratory rate 23, blood pressure 87/57 Repeat lactate level pending IV fluid IV antibiotic with Rocephin and azithromycin Pending follow-up of blood culture results x2 Throat culture pending Urine antigen markers pending IV drug user 07/27/2024 Assessment & Plan (07/27/2024 10:24 PM BAND ATTACHER): Long history of IV drug use referred, most recently having overdose several weeks ago as noted Prior HIV testing negative more than 1 year ago as referred by patient Patient requests HIV testing at this time --- pending for a.m. Pneumonia 07/27/2024 Assessment & Plan (07/27/2024 10:25 PM BAND ATTACHER): Noted on CT imaging No sign of respiratory compromise at time of assessment IV antibiotics as noted Pending follow-up of blood culture x2 Throat culture pending Urine for antigen markers pending Moderate protein malnutrition 07/27/2024 Assessment & Plan (07/27/2024 10:25 PM BAND ATTACHER): Weight loss referred by patient Physical examination identifies cachectic patient BMI 19.47 Pending assessment a TSH and F T4 levels Hyperglycemia 07/27/2024 Assessment & Plan (07/27/2024 10:26 PM BAND ATTACHER): Glucose level over 200 noted upon arrival [...] 11/20/2023 Personal history of other diseases of machine 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 1 to 4 times per year 07/28/2024 Do you belong to any clubs o r organizations such as scientologist groups, unions, fraternal or athletic groups, or [...] any time in the past 12 m [facility], were you homeless or living in a fdc (including now)? No 07/28/2024 Personal Safety Answer Date Recorded Have you ever been in or are you currently in a harmful physical or emotional relationship or is someone making you feel afraid or unsafe? Denies 07/27/2024 Sex and Gender Information Value Date Recorded Sex Assigned at Not on file Legal Sex Male 9:43 AM BAND ATTACHER Gender Identity Not on file Sexual Orientation Not on file Obstetrics History Last Filed Vital Signs Vital Sign Reading Time Taken Comments Blood Pressure 96/58 08/02/2024 3:09 PM BAND ATTACHER Pulse 90 08/02/2024 3:09 PM BAND ATTACHER Temperature 36.6 C (97.9 F) 08/02/2024 11:19 AM BAND ATTACHER Respiratory Rate 16 08/02/2024 3:09 PM BAND ATTACHER Oxygen Saturation 100% 08/02/2024 3:09 PM BAND ATTACHER Inhaled Oxygen Concentration - - Weight 53.1 kg (117 lb) 07/27/2024 10:12 PM BAND ATTACHER Height 165.1 cm (5' 5) 07/28/2024 12:30 PM BAND ATTACHER Body Mass Index 19.47 07/27/2024 10:12 PM BAND ATTACHER Plan of Treatment Health Maintenance Due Date [...] Hepatitis C Screening Completed 11/20/2023, 024 Insurance [facility] Advance Directives For more information, please contact: [phone] * Full Code (Latest Code Status on File) Date Activated Date Inactivated Comments 07/27/2024 10:52 PM 08/02/2024 8:40 PM Care Teams Records Analysis Manager Relationship Specialty Start Date End Date Shadi Farley MD [address] [place] [address] PCP - General Family Medicine 08/21/23 Alise Olguin NP [address] [address] Nurse Practitioner Cardiology 08/02/24
--- OUTSIDE RECORDS SUMMARY | 2025-02-21 11:23 | XMS_ITS | Clinical Summary ---
Author Organization [facility] Address [facility] [place] [address] Care Team Providers Care Air Control Electronics Operator Name Role Phone Dipti Rosario MD Primary Care Provider [phone] Social History Tobacco Use Types Packs/Day Years Used Date Smoking Tobacco: Smoker, Current Status Unknown Sex and Gender Information Value Date Recorded Sex Assigned at Male 07/01/2024 3:28 PM TABLE OPERATOR Legal Sex Male 7:51 PM CDT Gender [...] of 2) 2010 COVID-19 Vaccine (3 - 2024-2 6 season) 2025 08/25/2020, 07/28/2020 RSV Immunization or 60+ Years [...] patient's age to complete this topic Insurance [place] Care Teams Air Control Electronics Operator Relationship Specialty Start Date End Date Dipti Rosario MD [address] [place] [address] PCP - General INTERNAL MEDICINE 04/06/24
== END 2025-02-21 10:33 | disposition home or self-care (01) ==
PROVIDERS: PCP Family Medicine; Visit Provider Family Medicine
DX: I50.9 Heart failure, unspecified (principal); I35.8 Other nonrheumatic aortic valve disorders; I08.1 Rheumatic disorders of both mitral and tricuspid valves; I27.20 Pulmonary hypertension, unspecified
CPT/HCPCS: 93306

== ENCOUNTER 2025-03-01 10:57 | Outpatient (CLI) | payer OTHER, SELFPAY ==
[2025-03-01 11:00] VITALS: PULSE 69; O2SAT 96
[2025-03-01 11:10] VITALS: PULSE 95; O2SAT 89
--- NOTE | 2025-03-01 11:31 | HOMEO2EVAL ---
Evaluation was performed at [facility] Home Oxygen Evaluation RC: Home Oxygen (O2) Evaluation Start: 03/01/25 11:25 Freq: Status: Active Protocol: RPE Activity Type Activity Date Activity User E-sign Co-sign Detail Recorded Client Recorded Date Recorded By Document 03/01/25 11:00 ELIZABETH [email or web address] 03/01/25 11:31 SJB Document 03/01/25 11:10 ELIZABETH [email or web address] 03/01/25 11:31 SJB 03/01/25 03/01/25 11:00 11:10 Home O2 Evaluation [Oxygen] -Test Phase Resting Exercise -Oxygen Delivery Room Air Room Air [Pulse Oximetry] -Pulse Oximetry (90-100 %) 96 89 L [Pulse Rate] -Pulse Rate (60-100 beats/min) 69 95 [Evaluation] -Activity Tolerance Good -Rating of Perceived Dyspnea (PD) +3 Moderate Difficulty, But Can Continue -Rate of Perceived Exertion (PE) 15 Hard Query Text:Click the Protocol Button to View the RPE Scale [Exercise] -Ambulation Distance (feet) 800 -Ambulation Distance (meters) 243.82 [Comments] -Home Oxygen Evaluation Comments Will begin walk Patient walked on room air. approx a total of 800 ft on room air. Pt got unsteady at 700 ft and had to get his air and balance again, sp02 at this time was 93%. Sp02s stayed between 93-97% and HR at the highest was 89. [Charges] -Evaluation Charges O2 Evaluation Charge
--- OUTSIDE RECORDS SUMMARY | 2025-03-01 11:46 | XMS_ITS | Clinical Summary ---
Author Organization [facility] Address [facility] [place] [address] Care Team Providers Care Heel Padder Name Role Phone Dipti Rosario MD Primary Care Provider [phone] Social History Tobacco Use Types Packs/Day Years Used Date Smoking Tobacco: Smoker, Current Status Unknown Sex and Gender Information Value Date Recorded Sex Assigned at Male 07/01/2024 3:28 PM COVER CREASER Legal Sex Male 7:51 PM CDT Gender [...] patient's age to complete this topic Insurance [employer] Care Teams Heel Padder Relationship Specialty Start Date End Date Dipti Rosario MD [address] [place] [address] PCP - General INTERNAL MEDICINE 04/06/24
--- OUTSIDE RECORDS SUMMARY | 2025-03-01 11:46 | XMS_ITS | Clinical Summary ---
Author Organization [facility] Medical Office Building B Address [address] [place] [address] Care Team Providers Care Neck Band Operator Name Role Phone Shadi Farley MD Primary [...] 07/27/2024 Assessment & Plan (07/27/2024 10:23 PM BIKE DESIGNER): Secondary to pneumonia etiology WBC 23.9K, lactic acid 2.8, heart rate 104, respiratory rate 23, blood pressure 87/57 Repeat lactate level pending IV fluid IV antibiotic with Rocephin and azithromycin Pending follow-up of blood culture results x2 Throat culture pending Urine antigen markers pending IV drug user 07/27/2024 Assessment & Plan (07/27/2024 10:24 PM BIKE DESIGNER): Long history of IV drug use referred, most recently having overdose several weeks ago as noted Prior HIV testing negative more than 1 year ago as referred by patient Patient requests HIV testing at this time --- pending for a.m. Pneumonia 07/27/2024 Assessment & Plan (07/27/2024 10:25 PM BIKE DESIGNER): Noted on CT imaging No sign of respiratory compromise at time of assessment IV antibiotics as noted Pending follow-up of blood culture x2 Throat culture pending Urine for antigen markers pending Moderate protein malnutrition 07/27/2024 Assessment & Plan (07/27/2024 10:25 PM BIKE DESIGNER): Weight loss referred by patient Physical examination identifies cachectic patient BMI 19.47 Pending assessment a TSH and F T4 levels Hyperglycemia 07/27/2024 Assessment & Plan (07/27/2024 10:26 PM BIKE DESIGNER): Glucose level over 200 noted upon arrival [...] 11/20/2023 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 1 to 4 times per year 07/28/2024 Do you belong to any clubs o r organizations such as baptism groups, unions, fraternal or athletic groups, or [...] any time in the past 12 m [facility], were you homeless or living in a correction (including now)? No 07/28/2024 Personal Safety Answer Date Recorded Have you ever been in or are you currently in a harmful physical or emotional relationship or is someone making you feel afraid or unsafe? Denies 07/27/2024 Sex and Gender Information Value Date Recorded Sex Assigned at Not on file Legal Sex Male 9:43 AM BIKE DESIGNER Gender Identity Not on file Sexual Orientation Not on file Obstetrics History Last Filed Vital Signs Vital Sign Reading Time Taken Comments Blood Pressure 96/58 08/02/2024 3:09 PM BIKE DESIGNER Pulse 90 08/02/2024 3:09 PM BIKE DESIGNER Temperature 36.6 C (97.9 F) 08/02/2024 11:19 AM BIKE DESIGNER Respiratory Rate 16 08/02/2024 3:09 PM BIKE DESIGNER Oxygen Saturation 100% 08/02/2024 3:09 PM BIKE DESIGNER Inhaled Oxygen Concentration - - Weight 53.1 kg (117 lb) 07/27/2024 10:12 PM BIKE DESIGNER Height 165.1 cm (5' 5) 07/28/2024 12:30 PM BIKE DESIGNER Body Mass Index 19.47 07/27/2024 10:12 PM BIKE DESIGNER Plan of Treatment Health Maintenance Due Date [...] Hepatitis C Screening Completed 11/20/2023, 024 Insurance [facility] Advance Directives For more information, please contact: [phone] * Full Code (Latest Code Status on File) Date Activated Date Inactivated Comments 07/27/2024 10:52 PM 08/02/2024 8:40 PM Care Teams Neck Band Operator Relationship Specialty Start Date End Date Shadi Farley MD [address] [place] [address] PCP - General Family Medicine 08/21/23 Alise Olguin NP [address] [place] [address] Nurse Practitioner Cardiology 08/02/24
== END 2025-03-01 10:58 | disposition home or self-care (01) ==
PROVIDERS: PCP Family Medicine; Visit Provider Family Medicine
DX: J44.1 Chronic obstructive pulmonary disease with (acute) exacerbation (principal)
CPT/HCPCS: 99199; 94618

== ENCOUNTER 2025-04-06 17:59 | Observation (INO) | payer OTHER, SELFPAY ==
--- NOTE | ~2025-04-06 | XR_ITS ---
EXAMINATION: XR chest 1V portable 04/06/2025 18:30 INDICATION: Shortness of breath PROCEDURE: AP portable chest COMPARISON: 02/08/2025 FINDINGS: The lungs are clear. The cardiomediastinal silhouette is within normal limits. There are no pleural effusions. There is no pneumothorax suspected. The lungs are hyperinflated which is consistent with, but not diagnostic of chronic obstructive pulmonary disease. There are scattered calcifi ed granulomas of the lungs. IMPRESSION: 1: NO ACUTE CARDIOPULMONARY DISEASE. Reviewed, dictated and finalized at location O. TRONIC INSTALLER
[2025-04-06 18:00] VITALS: BP 141/80; PULSE 72; RESP 18; TEMP 36.3; O2SAT 96
--- NOTE | 2025-04-06 18:07 | ECG_ITS ---
Test Date: 2025-04-06 18:15:17 Measurements Intervals [place] Rate: 65 P: 88 KS: 137 QRS: 208 QRSD: 106 T: 69 QT: 393 QTc: 411 Interpretive Statements SINUS RHYTHM WITH OCCASIONAL VENTRICULAR PREMATURE COMPLEXES INDETERMINATE AXIS NONSPECIFIC ST ELEVATION [0.05+ mV ST ELEVATION] ABNORMAL ECG Compared to ECG 02/08/2025 13:50:31 Ventricular premature complex(es) now present Indeterminate axis now present ST (T wave) deviation now present Electronically Signed On 04-07-2025 17:29:42 ELECTRIC REPAIR SUPERVISOR by Vishal Otto M.D.
[2025-04-06 18:14] VITALS: PULSE 69; RESP 20; O2SAT 96
[2025-04-06] MEDS: IPRATROPIUM 0.5 MG/ALBUTEROL SULFATE 2.5 MG (BASE) AMPUL.NEB 3 ML INHALATION ×2 (18:14→23:47)
[2025-04-06 18:20] VITALS: RESP 20; O2SAT 100
[2025-04-06 18:29] LABS: Hematocrit 40.7 % (40.0-54.0); Hemoglobin 12.7 g/dL (14.0-18.0); Immature Granulocyte Percent A 0.2 % (0.0-0.0); Lymphocytes Absolute Auto 1.00 K/mm3 (1.10-4.50); Mean Corpuscular HGB Conc 31.2 g/dL (32-36); Mean Corpuscular Hemoglobin 30.6 pg (27.0-31.0); Mean Corpuscular Volume 98.1 fL (78.0-102.0); Nucleated Red Blood Cells Absolute Auto 0.00 K/mm3 (0.00-0.00); Nucleated Red Blood Cells Perc 0.0 % (0-0.0); Platelet Count Result 174 K/mm3 (150-420); Red Blood Count 4.15 M/mm3 (4.70-6.10); White Blood Count 4.8 K/mm3 (4.8-10.8)
[2025-04-06] MEDS: MAGNESIUM SULF 2 GM/WATER 50ML 2 GM/50 ML BAG IVPB (18:29)
[2025-04-06 18:30] VITALS: PULSE 72; RESP 18; O2SAT 99
[2025-04-06 18:31] VITALS: BP 137/67; RESP 20; O2SAT 99
[2025-04-06 18:41] LABS: Alanine Aminotransferase 41 U/L (6-50); Albumin Level 3.7 g/dL (3.5-5.1); Alkaline Phosphatase 169 U/L (38-126); Anion Gap 3 mmol/L (4-12); Aspartate Amino Transferase 49 U/L (17-59); Bilirubin,Total 1.3 mg/dL (0.2-1.3); Blood Urea Nitrogen 17 mg/dL (9-20); Calcium 8.7 mg/dL (8.4-10.2); Carbon Dioxide 32 mmol/L (22-30); Chloride 108 mmol/L (98-107); Estimated Glomerular Filt Rate > 60; Glucose 132 mg/dL (65-110); Magnesium 1.8 mg/dL (1.6-2.3); Osmolality Calculated 299 mOsm/kg (285-295); Potassium 4.4 mmol/L (3.4-5.0); Sodium 143 mmol/L (137-145); Total Protein 6.6 g/dL (6.3-8.2)
[2025-04-06 18:43] LABS: INR 1.0; Partial Thromboplastin Time 32.5 Sec (23.9-30.70); Prothrombin Time 11.2 Seconds (9.50-12.1)
[2025-04-06 18:52] LABS: NT Pro B Type Natriuretic Pept 1950 pg/mL (19.9-100); Troponin I 0.016 ng/mL (0.000-0.034)
[2025-04-06 19:06] LABS: Influenza A QL RT-PCR Negative (Negative); Influenza B QL RT-PCR Negative (Negative); RSV RNA, RT-PCR Negative (Negative); SARS-CoV-2 RNA PCR Negative (Negative)
--- NOTE | 2025-04-06 19:11 | ED.SOB ---
HPI - SOB/Dyspnea General Chief Complaint: Shortness of Breath/Dyspnea Stated Complaint: shortness of breath Source: patient and EMS Mode of arrival: EMS Limitations: physical limitation History of Present Illness HPI Narrative: This is a 64-year-old male with history of COPD current smoker and history of CHF presents with cough and congestion with audible wheezing for the last couple a days patient lives out of his garage and has been having a productive cough with some no chest pain no nausea vomiting no diaphoresis no diarrhea constipation no nausea or vomiting no dysuria or hematuria. MD elicited complaint: shortness of breath and cough Pertinent past history: COPD and congestive heart failure Onset (ago): day(s) Context: recent illness Timing: constant Severity: moderate Exacerbating factors: coughing Related Data Home Medications ?Medication ?Instructions ?Recorded ?Confirmed ?Last Taken ?Type albuterol sulfate 2.5 mg/3 mL 2.5 mg inhalation Q4-6H 02/01/25 02/01/25 Unknown History (0.083 %) solution for nebulization atorvastatin 20 mg tablet 20 mg PO QPM 02/01/25 02/01/25 Unknown History calcium polycarbophil 625 mg 625 mg PO DAILY 02/01/25 02/01/25 Unknown History tablet (Fiber (calcium polycarbophil)) montelukast 10 mg tablet 10 mg PO DAILY 02/01/25 02/01/25 Unknown History omeprazole 20 mg capsule,delayed 20 mg PO DAILY 02/01/25 02/01/25 Unknown History release theophylline 400 mg 400 mg PO DAILY 02/01/25 02/01/25 Unknown History tablet,extended release 24 hr Allergies Allergy/AdvReac Type Severity Reaction Status Date / Time No Known Allergies Allergy Verified 04/06/25 18:11 Review of Systems Review of Systems: All systems reviewed & are unremarkable except as noted in HPI and below PMFSH Past Medical History Medical History Peripheral vascular disease Hepatitis C Asthma exacerbation in COPD Exam Const: General: healthy appearing and no acute distress Nutritional Appearance: thin Orientation/consciousness: patient oriented x3 Eyes: Conjunctivae: conjunctivae normal Pupils: Equal, round and reactive pupils present EOM: EOMs intact bilaterally Neck: Neck: normal visual inspection Chest: Chest palpation & inspection: normal inspection of the chest Resp: Effort & Inspection: normal respiratory effort Auscultation: wheezes and breath sounds absent Cardio: Rate: regular rate GI: GI Palp: Yes Soft to palpation Auscultation: normal bowel sounds Skin: General skin exam: normal color Rashes: no rashes Wounds: no wounds Neuro: General: patient oriented x3, moves all extremities and no meningeal signs Extrem: General: normal to inspection and edema Course Course Emergency Course: Medical decision making narrative: The patient was evaluated by myself in the emergency department. History obtained from the patient who is an independent historian physical exam performed and witnessed by nurse. Patient had chest x-ray performed which showed no acute cardiopulmonary abnormality, patient has some physical exam with auscultation shows that he has his lungs had some tightness with audible wheezing and received DuoNeb, 125 of Solu-Medrol and 2mg IV magnesium. Blood work was unremarkable with a normal lactic acid normal white count EKG showed normal sinus rhythm with occasional PVCs. Repeat assessment patient doing well in no acute distress her repeat exam Symptoms have improved since arrival to ED vitals are stable Patient agrees with discussion after shared medical decision-making agrees with admission. Will admit to hospitalist service. Vital Signs Vital signs: Vital Signs Temperature 36.3 C L 04/06/25 18:00 Pulse Rate 72 04/06/25 18:00 Respiratory Rate 18 04/06/25 18:00 Blood Pressure 141/80 H 04/06/25 18:00 Pulse Oximetry 96 04/06/25 18:00 Oxygen Delivery Room Air 04/06/25 18:00 Temperature 36.3 C L 04/06/25 18:00 Pulse Rate 72 04/06/25 18:30 Respiratory Rate 20 04/06/25 18:31 Blood Pressure 137/67 04/06/25 18:31 Pulse Oximetry 99 04/06/25 18:31 Oxygen Delivery Room Air 04/06/25 18:00 MDM - SOB/Dyspnea Lab Data 04/06/25 18:25 04/06/25 18:25 Labs: Lab Results 04/06/25 Range/Units 18:25 WBC 4.8 (4.8-10.8) K/mm3 RBC 4.15 L (4.70-6.10) M/mm3 Hgb 12.7 L (14.0-18.0) g/dL Hct 40.7 (40.0-54.0) % MCV 98.1 (78.0-102.0) fL MCH 30.6 (27.0-31.0) pg MCHC 31.2 L (32-36) g/dL RDW 12.8 (11.6-14.4) % Plt Count 174 (150-420) K/mm3 MPV 9.9 (8.7-11.0) fl Immature Gran % (Auto) 0.2 H (0.0-0.0) % Neut % (Auto) 71.3 H (50.0-70.0) % Lymph % (Auto) 20.8 (18.0-42.0) % [place] % (Auto) 6.5 (2.0-11.0) % Eos % (Auto) 0.8 L (1.0-6.0) % Baso % (Auto) 0.4 (0.0-1.0) % Lymph # (Auto) 1.00 L (1.10-4.50) K/mm3 [place] # (Auto) 0.31 (0.10-0.90) K/mm3 Eos # (Auto) 0.04 (0.02-0.50) K/mm3 Baso # (Auto) 0.02 (0.00-0.10) K/mm3 Abs Immat Gran (auto) 0.01 H (0.00-0.00) K/mm3 Absolute Neuts (auto) 3.42 (1.70-7.20) K/mm3 Absolute Nucleated RBC 0.00 (0.00-0.00) K/mm3 Nucleated RBC % 0.0 (0-0.0) % PT 11.2 (9.50-12.1) Seconds INR 1.0 APTT 32.5 H (23.9-30.70) Sec Sodium 143 (137-145) mmol/L Potassium 4.4 (3.4-5.0) mmol/L Chloride 108 H (98-107) mmol/L Carbon Dioxide 32 H (22-30) mmol/L Anion Gap 3 L (4-12) mmol/L BUN 17 (9-20) mg/dL Creatinine 0.70 (0.7-1.3) mg/dL Estim Creat Clear Calc Not Reportable Estimated GFR > 60 (59 - ) Glucose 132 H (65-110) mg/dL Calculated Osmolality 299 H (285-295) mOsm/kg Lactic Acid 1.3 (0.7-2.0) mmol/L Calcium 8.7 (8.4-10.2) mg/dL Magnesium 1.8 (1.6-2.3) mg/dL Total Bilirubin 1.3 (0.2-1.3) mg/dL AST 49 (17-59) U/L ALT 41 (6-50) U/L Alkaline Phosphatase 169 H (38-126) U/L Troponin I 0.016 (0.000-0.034) ng/mL NT-Pro-B Natriuret Pep 1950 H (19.9-100) pg/mL Total Protein 6.6 (6.3-8.2) g/dL Albumin 3.7 (3.5-5.1) g/dL Influenza A (RT-PCR) Negative (Negative) Influenza B (RT-PCR) Negative (Negative) RSV (RT-PCR) Negative (Negative) SARS-CoV-2 RNA (RT-PCR) Negative (Negative) Critical Care Time Critical Care Time Critical Care Time: No Discharge Plan Discharge Clinical Impression: COPD exacerbation, Acute upper respiratory infection CHF (congestive heart failure) Qualifiers: Heart failure type: unspecified Heart failure chronicity: unspecified Qualified Code(s): I50.9 - Heart failure, unspecified Patient Disposition: Acute Care Hospital Condition: Guarded Prognosis Patient Language: Tajik Prescriptions: No Action naloxone 10 mg/0.4 mL auto-injector 2 mg subcut Q3M Qty: 4 0RF Rx Instructions: until desired response albuterol sulfate [Ventolin HFA] 90 mcg/actuation HFA aerosol inhaler 1 puff inhalation QID PRN (Reason: shortness of breath or wheezing) Qty: 8.5 0RF atorvastatin 20 mg tablet 20 mg PO QPM albuterol sulfate 2.5 mg /3 mL (0.083 %) solution for nebulization 2.5 mg inhalation Q4-6H theophylline 400 mg tablet extended release 24 hr 400 mg PO DAILY calcium polycarbophil [Fiber (calcium polycarbophil)] 625 mg tablet 625 mg PO DAILY omeprazole 20 mg capsule,delayed release(DR/EC) 20 mg PO DAILY montelukast 10 mg tablet 10 mg PO DAILY azithromycin [Zithromax] 250 mg tablet See Rx Instructions .ROUTE .COMPLEX Qty: 6 0RF Rx Instructions: For 250 mg dose pack: take 500 mg today (day 1), then 250 mg for 4 days (days 2-5) Follow-up/Referrals: Shadi Farley MD [Primary Care Provider, Internal Medicine] Time of Disposition: 19:18
[2025-04-06] MEDS: FUROSEMIDE INJ 40 MG/4 ML VIAL IV PUSH (19:33)
[2025-04-06] MEDS: levoFLOXacin 500 MG/D5W 100 ML 500 MG/100 ML BAG 100 MG IVPB (19:34)
--- NOTE | 2025-04-06 19:38 | PC.NURSE ---
Pt resting and POC for admission discussed. Pt VSS, pt will go to Rm [id number] per Stephanie Valadez
[2025-04-06 20:00] VITALS: BP 134/67; PULSE 71; RESP 18; TEMP 36.6; O2SAT 98
[2025-04-06 20:16] VITALS: BMI 18.7
[2025-04-06] MEDS: ATORVASTATIN 10 MG TABLET 20 MG PO (20:48)
--- OUTSIDE RECORDS SUMMARY | 2025-04-06 21:14 | XMS_ITS | Clinical Summary ---
Author Organization [facility] Address [facility] [place] [address] Care Team Providers Care Apartment Maintenance Worker Name Role Phone Dipti Rosario MD Primary Care Provider [phone] Social History Tobacco Use Types Packs/Day Years Used Date Smoking Tobacco: Smoker, Current Status Unknown Sex and Gender Information Value Date Recorded Sex Assigned at Male 07/01/2024 3:28 PM NEEDLE GRADER Legal Sex Male 7:51 PM CDT Gender [...] - 2024-2 6 season) 2025 08/25/2020, 07/28/2020 Influenza Adult (#1) 2025 RSV Immunization or 60+ Years (1 - 1-dose 75+ series) 2035 Hepatitis C Completed 09/09/2011, 09/09/2010, 03/19/2010 Hepatitis A Vaccines Aged Out No long er eligible based on patient's age to complete this topic Meningococcal B Vaccine Aged Out No l onger eligible based on patient's age to complete this topic Meningococcal Vaccine Aged Out No shubham narinder eligible based on patient's age to complete this topic RSV Immunizations Under 20 Months Aged Out No longer eligible b ased on patient's age to complete this topic Insurance [employer] Care Teams Apartment Maintenance Worker Relationship Specialty Start Date End Date Dipti Rosario MD [address] [place] [address] PCP - General INTERNAL MEDICINE 04/06/24
--- OUTSIDE RECORDS SUMMARY | 2025-04-06 21:14 | XMS_ITS | Clinical Summary ---
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): Secondary to pneumonia etiology WBC 23.9K, lactic acid 2.8, heart rate 104, respiratory rate 23, blood pressure 87/57 Repeat lactate level pending IV fluid IV antibiotic with Rocephin and azithromycin Pending follow-up of blood culture results x2 Throat culture pending Urine antigen markers pending IV drug user 07/27/2024 Assessment & Plan (07/27/2024 10:24 PM SCREW DRIVER OPERATOR): Long history of IV drug use referred, most recently having overdose several weeks ago as noted Prior HIV testing negative more than 1 year ago as referred by patient Patient requests HIV testing at this time --- pending for a.m. Pneumonia 07/27/2024 Assessment & Plan (07/27/2024 10:25 PM SCREW DRIVER OPERATOR): Noted on CT imaging No sign of respiratory compromise at time of assessment IV antibiotics as noted Pending follow-up of blood culture x2 Throat culture pending Urine for antigen markers pending Moderate protein malnutrition 07/27/2024 Assessment & Plan (07/27/2024 10:25 PM SCREW DRIVER OPERATOR): Weight loss referred by patient Physical examination identifies cachectic patient BMI 19.47 Pending assessment a TSH and F T4 levels Hyperglycemia 07/27/2024 Assessment & Plan (07/27/2024 10:26 PM SCREW DRIVER OPERATOR): Glucose level over 200 noted upon arrival [...] 11/20/2023 Personal history of other diseases of flavor maker y system 11/20/2023 Surgical History Surgery Date [...] pure alcohol) alcoholic, last drink summer 2023 [facility] Utilities Answer Date Recorded In the past 12 months has [employer], gas, oil, or water [employer] threatened to shut off services in your [...] often do you attend chur ch or islam services? 1 to 4 times per year 07/28/2024 Do you belong to any clubs o r organizations such as holiness groups, unions, fraternal or athletic groups, or [...] any time in the past 12 m [facility], were you homeless or living in a group home (including now)? No 07/28/2024 Personal Safety Answer Date Recorded Have you ever been in or are you currently in a harmful physical or emotional relationship or is someone making you feel afraid or unsafe? Denies 07/27/2024 Sex and Gender Information Value Date Recorded Sex Assigned at Not on file Legal Sex Male 9:43 AM SCREW DRIVER OPERATOR Gender Identity Not on file Sexual Orientation Not on file Last Filed Vital Signs Vital Sign Reading Time Taken Comments Blood Pressure 96/58 08/02/2024 3:09 PM SCREW DRIVER OPERATOR Pulse 90 08/02/2024 3:09 PM SCREW DRIVER OPERATOR Temperature 36.6 C (97.9 F) 08/02/2024 11:19 AM SCREW DRIVER OPERATOR Respiratory Rate 16 08/02/2024 3:09 PM SCREW DRIVER OPERATOR Oxygen Saturation 100% 08/02/2024 3:09 PM SCREW DRIVER OPERATOR Inhaled Oxygen Concentration - - Weight 53.1 kg (117 lb) 07/27/2024 10:12 PM SCREW DRIVER OPERATOR Height 165.1 cm (5' 5) 07/28/2024 12:30 PM SCREW DRIVER OPERATOR Body Mass Index 19.47 07/27/2024 10:12 PM SCREW DRIVER OPERATOR Plan of Treatment Health Maintenance Due Date [...] Hepatitis C Screening Completed 11/20/2023, 024 Insurance [facility] Advance Directives For more information, please contact: [phone] * Full Code (Latest Code Status on File) Date Activated Date Inactivated Comments 07/27/2024 10:52 PM 08/02/2024 8:40 PM Care Teams Quad Stayer Relationship Specialty Start Date End Date Shadi Farley MD [address] [place] [address] PCP - General Family Medicine 08/21/23 Alise Olguin NP [address] [place] [address] [address] Nurse Practitioner Cardiology 08/02/24
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
--- NOTE | 2025-04-06 23:55 | PC.NURSE ---
Pt given solumedrol 40 mg IVP and a duoneb treatment as ordered which he tolerated well.
[2025-04-07] VITALS (8 sets, daily range): BP systolic 108–125; BP diastolic 65–68; PULSE 66–100; RESP 16–20; TEMP 36.6–36.9; O2SAT 90–96
--- NOTE | 2025-04-07 01:35 | PC.NURSE ---
Pt requested a sandwich which he was given.
--- NOTE | 2025-04-07 04:24 | PC.NURSE ---
Pt asleep and no signs of respiratory distress noted.
[2025-04-07] MEDS: IPRATROPIUM 0.5 MG/ALBUTEROL SULFATE 2.5 MG (BASE) AMPUL.NEB 3 ML INHALATION ×2 (05:35→11:39)
[2025-04-07 05:41] LABS: Hematocrit 41.0 % (40.0-54.0); Hemoglobin 13.1 g/dL (14.0-18.0); Immature Granulocyte Percent A 0.2 % (0.0-0.0); Lymphocytes Absolute Auto 0.44 K/mm3 (1.10-4.50); Mean Corpuscular HGB Conc 32.0 g/dL (32-36); Mean Corpuscular Hemoglobin 30.3 pg (27.0-31.0); Mean Corpuscular Volume 94.9 fL (78.0-102.0); Nucleated Red Blood Cells Absolute Auto 0.00 K/mm3 (0.00-0.00); Nucleated Red Blood Cells Perc 0.0 % (0-0.0); Platelet Count Result 210 K/mm3 (150-420); Red Blood Count 4.32 M/mm3 (4.70-6.10); White Blood Count 5.9 K/mm3 (4.8-10.8)
[2025-04-07 05:54] LABS: Alanine Aminotransferase 46 U/L (6-50); Albumin Level 3.7 g/dL (3.5-5.1); Alkaline Phosphatase 181 U/L (38-126); Anion Gap 5 mmol/L (4-12); Aspartate Amino Transferase 43 U/L (17-59); Bilirubin,Total 1.2 mg/dL (0.2-1.3); Blood Urea Nitrogen 22 mg/dL (9-20); Calcium 8.7 mg/dL (8.4-10.2); Carbon Dioxide 33 mmol/L (22-30); Chloride 100 mmol/L (98-107); Estimated CRCL calculation 52 ml/min; Estimated Glomerular Filt Rate > 60; Glucose 334 mg/dL (65-110); Magnesium 1.8 mg/dL (1.6-2.3); Osmolality Calculated 302 mOsm/kg (285-295); Potassium 3.9 mmol/L (3.4-5.0); Sodium 138 mmol/L (137-145); Total Protein 6.8 g/dL (6.3-8.2)
[2025-04-07 06:04] LABS: NT Pro B Type Natriuretic Pept 1770 pg/mL (19.9-100)
--- NOTE | 2025-04-07 06:30 | PC.NURSE ---
Pt resting quietly in bed and no signs of respiratory distress noted.
--- OUTSIDE RECORDS SUMMARY | 2025-04-07 07:10 | XMS_ITS | Clinical Summary ---
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
[2025-04-07] MEDS: MONTELUKAST SODIUM 10 MG TABLET PO (08:10)
[2025-04-07] MEDS: PANTOPRAZOLE 40 MG TABLET PO (08:10)
[2025-04-07] MEDS: THEOPHYLLINE ANHYDROUS 200 MG ER 24 HR CAPSULE 400 MG PO (08:10)
[2025-04-07 09:25] LABS: Hemoglobin A1C 6.2 % (<5.7)
[2025-04-07] MEDS: AZITHROMYCIN 250 MG TABLET 500 MG PO (09:34)
--- NOTE | 2025-04-07 09:42 | P.SS_ITS ---
Same Day Admit/Disch: HPI History of Present Illness Chief complaint: SOB Narrative: Eddie Kirkland is a 64 year old male who presented to the emergency department with complaints worsening shortness breath over the last few days. Patient reports he has a past medical history COPD, diastolic heart failure, HLD, hepatitis-C, PVD, and previous need for supplemental oxygen at home however been discontinued. patient reported he has had increased productive cough and felt as though he had worsening shortness of breath from his baseline. Patient denied any chest pain, nausea, vomiting, fever, chills, diaphoresis, or diarrhea. In the ED: per the emergency medical chart patient did have audible wheezing and tachypnea upon arrival at which time patient received duo nebs and 125 mg methylprednisone with relief to symptoms. patient did have elevated glucose but otherwise labs unremarkable and CXR with no acute cardiopulmonary findings. Patient did not require any supplemental oxygen in the emergency department. patient was given a dose of IV Levaquin potential underlying pneumonia however this was discontinued after CXR and labs. patient's BNP was mildly elevated on admission at 1950 and patient reported trace bilateral lower extremity edema which time he did receive a dose of Lasix in the emergency department. Patient was admitted to the medical unit for observation and continued duo nebulizers and methylprednisone for COPD exacerbation. [facility] Past Medical History Medical History Tobacco abuse Hyperlipidemia Diastolic heart failure COPD (chronic obstructive pulmonary disease) Peripheral vascular disease Hepatitis C Asthma exacerbation in COPD Social History Social History Years smoked: 50 Tobacco type: cigarettes Second hand tobacco smoke exposure: Yes Alcohol intake: former Substance use: former Substance use type: does not use Lack of Transportation: YES Lack of Food: Never True Current Housing: I Have Housing Concerned About Future Housing: No Difficulty Paying Gas/Electric Bills: No Difficulty Paying for Meds: YES Currently Unemployed: No Education: Grade School Difficulty w/ Childcare or Family Care: No Spiritual care concerns: No Same Day Admit/Disch: Med Pre-admit Medications Home Medications ?Medication ?Instructions ?Recorded ?Confirmed ?Type naloxone 10 mg/0.4 mL 2 mg (0.08 mL) subcut Q3M #4 mL 07/13/24 02/01/25 Rx injection,auto-injector azithromycin 250 mg tablet See Rx Instructions PO .COM PLEX #6 02/01/25 Rx (Zithromax) tabs calcium polycarbophil 625 mg 625 mg PO DAILY 02/01/25 02/01/25 History tablet (Fiber (calcium polycarbophil)) omeprazole 20 mg capsule,delayed 20 mg PO DAILY 02/01/25 History release albuterol sulfate 2.5 mg/3 mL 2.5 mg (3 mL) inhalation Q4-6H #75 04/07/25 Rx (0.083 %) solution for nebulization mL albuterol sulfate 90 mcg/actuation 1 puff inhalation Q ID PRN 04/07/25 Rx aerosol inhaler (Ventolin HFA) shortness of breath or wheezing #8.5 grams atorvastatin 20 mg tablet 20 mg PO QPM #30 tabs Rx azithromycin 250 mg tablet 250 mg PO ONCE #4 tabs 12/23 Rx furosemide 20 mg tablet (Lasix) 20 mg PO DAILY PRN emeka ma #30 tabs 04/07/25 Rx guaifenesin 200 mg tablet 600 mg (3 x 200 mg) PO BID # 180 04/07/25 Rx tabs metformin 500 mg tablet 500 mg PO DAILY #30 tabs 12/23 Rx montelukast 10 mg tablet 10 mg PO DAILY #30 tabs 12/23 Rx prednisone 20 mg tablet 40 mg (2 x 20 mg) PO DAILY@0 800 #8 04/07/25 Rx tabs theophylline 400 mg 400 mg PO DAILY #30 tabs 12/23 Rx tablet,extended release 24 hr Review of Systems Review of Systems All systems reviewed & are unremarkable except as noted in HPI and below Exam Const: General: comfortable and no acute distress HENMT: Ears: TM's normal bilaterally Face/Nose/Sinus: Normal nares present Mouth: Yes moist mucous membranes Eyes: General: appearance normal, both eyes and all related structures Sclera: sclerae normal Pupils: Equal, round and reactive pupils present Neck: Neck: supple and no JVD Resp: Effort & Inspection: normal respiratory effort Auscultation: wheezes scattered wheezes Other: mild productive cough Cardio: Rate: regular rate Rhythm: regular rhythm GI: GI Palp: Yes Soft to palpation Auscultation: normal bowel sounds Skin: General skin exam: normal color and no rashes or lesions noted Wounds: no wounds Neuro: General: gait normal Speech: normal speech Motor exam (neuro): 5/5 motor strength present throughout Sensory Exam: normal sensation Extrem: General: normal to inspection Psych: Mental Status: mental status grossly normal Affect: normal affect DS: Data Data Completed and Pending Labs on day of discharge: Labs from last 24 hours 04/07/25 04/06/25 05:37 18:25 WBC 5.9 4.8 RBC 4.32 L 4.15 L Hgb 13.1 L 12.7 L Hct 41.0 40.7 MCV 94.9 98.1 MCH 30.3 30.6 MCHC 32.0 31.2 L RDW 12.5 12.8 Plt Count 210 174 MPV 10.5 9.9 Immature Gran % (Auto) 0.2 H 0.2 H Neut % (Auto) 91.3 H 71.3 H Lymph % (Auto) 7.4 L 20.8 [place] % (Auto) 0.7 L 6.5 Eos % (Auto) 0.2 L 0.8 L Baso % (Auto) 0.2 0.4 Lymph # (Auto) 0.44 L 1.00 L [place] # (Auto) 0.04 L 0.31 Eos # (Auto) 0.01 L 0.04 Baso # (Auto) 0.01 0.02 Abs Immat Gran (auto) 0.01 H 0.01 H Absolute Neuts (auto) 5.43 3.42 Absolute Nucleated RBC 0.00 0.00 Nucleated RBC % 0.0 0.0 PT 11.2 INR 1.0 APTT 32.5 H Sodium 138 143 Potassium 3.9 4.4 Chloride 100 108 H Carbon Dioxide 33 H 32 H Anion Gap 5 3 L BUN 22 H 17 Creatinine 0.94 0.70 Estim Creat Clear Calc 52 Not Reportable Estimated GFR > 60 > 60 Glucose 334 H 132 H Hemoglobin A1c 6.2 H Calculated Osmolality 302 H 299 H Lactic Acid 1.3 Calcium 8.7 8.7 Magnesium 1.8 1.8 Total Bilirubin 1.2 1.3 AST 43 49 ALT 46 41 Alkaline Phosphatase 181 H 169 H Troponin I 0.016 NT-Pro-B Natriuret Pep 1770 H 1950 H Total Protein 6.8 6.6 Albumin 3.7 3.7 Influenza A (RT-PCR) Negative Influenza B (RT-PCR) Negative RSV (RT-PCR) Negative SARS-CoV-2 RNA (RT-PCR) Negative Imaging Radiologist's impression: EXAMINATION: XR chest 1V portable 04/06/2025 18:30 INDICATION: Shortness of breath PROCEDURE: AP portable chest COMPARISON: 02/08/2025 FINDINGS: The lungs are clear. The cardiomediastinal silhouette is within normal limits. There are no pleural effusions. There is no pneumothorax suspected. The lungs are hyperinflated which is consistent with, but not diagnostic of chronic obstructive pulmonary disease. There are scattered calcified granulomas of the lungs. IMPRESSION: 1: NO ACUTE CARDIOPULMONARY DISEASE. Reviewed, dictated and finalized at location O. DS: Summary Hospital Course Reason for hospitalization: COPD exacerbation Hospital Course: Eddie Kirkland is a 64 year old male who presented to the emergency department with complaints worsening shortness breath over the last few days. Patient reports he has a past medical history COPD, diastolic heart failure, HLD, hepatitis-C, PVD, and previous need for supplemental oxygen at home however been discontinued. patient reported he has had increased productive cough and felt as though he had worsening shortness of breath from his baseline. Patient denied any chest pain, nausea, vomiting, fever, chills, diaphoresis, or diarrhea. In the ED: per the emergency medical chart patient did have audible wheezing and tachypnea upon arrival at which time patient received duo nebs and 125 mg methylprednisone with relief to symptoms. patient did have elevated glucose but otherwise labs unremarkable and CXR with no acute cardiopulmonary findings. Patient did not require any supplemental oxygen in the emergency department. patient was given a dose of IV Levaquin potential underlying pneumonia however this was discontinued after CXR and labs. Patient was admitted to the medical unit for observation and continued duo nebulizers and methylprednisone for COPD exacerbation. Hospital course: Patient was admitted to the medical unit for observation and continued duo nebulizers and methylprednisone for COPD exacerbation. on follow-up assessment patient ambulating on own in no respiratory distress had just gotten out of the shower with minimal SOB with exertion mild nonproductive cough. Patient denied any chest pain, nausea, vomiting, sinus pressure. Patient was found to be negative for COVID/RSV/influenza. after review of labs patient's glucose was greater than 300 likely some induced from IV steroids however previous A1c was 6.4 currently on no diabetic medications follow-up A1c was 6.2 which patient was in agreeable to start daily metformin and will need to follow-up for an A1c in 3 months. patient's BNP was mildly elevated on admission at 1950 and patient reported trace bilateral lower extremity edema which time he did receive a dose of Lasix in the emergency department. Patient with overall improvement to symptoms remained on room air at 95%, labs with overall improvement in vital stable. patient was discharged home provided prescriptions for all home meds currently reports he was out at home. Status at Discharge Functional status at discharge: independent ambulation Overall status at discharge: patient is back to baseline Time Spent with Patient Time attestation: Total time spent providing and/or coordinating discharge services: Time spent: Greater than 30 minutes DS: Admitting Diagnosis Discharge Date 04/07/2025 Admitting Diagnosis COPD exacerbation/ hyperglycemia/ CHF exacerbation DS: Discharge Diagnosis Discharge Diagnosis (1) Diastolic heart failure: Code(s): I50.30 - Unspecified diastolic (congestive) heart failure Status: Acute (2) Hyperlipidemia: Code(s): E78.5 - Hyperlipidemia, unspecified Status: Acute (3) Acute upper respiratory infection: Code(s): J06.9 - Acute upper respiratory infection, unspecified Status: Acute (4) COPD exacerbation: Code(s): J44.1 - Chronic obstructive pulmonary disease with (acute) exacerbation Status: Acute (5) Tobacco abuse: Code(s): Z72.0 - Tobacco use Status: Acute (6) Diabetes type 2: Code(s): E11.9 - Type 2 diabetes mellitus without complications Status: Acute Discharge Plan Discharge Attending physician on discharge: Alec Borja Consulting providers: Radha Nye Discharging Clinician: Radha Nye Anticipated Discharge Date/Time: 04/07/25 09:56 Patient Disposition: Home Activity: may shower and as tolerated Diet: heart healthy and diabetic Discharge Instructions: 1). COPD * avoid irritants and recommended antihistamine at night to avoid exacerbations * recommend immediate smoking cessation * continue to use inhalers as indicated * I have prescribed azithromycin and prednisone please complete even if feeling better as indicated * recommend establishing with spring coverer outpatient 2). congestive heart failure * I have prescribed oral Lasix 20 mg as needed for increased lower extremity edema or excessive waking over a week * recommend establishing and follow-up with spring setter * recommended cardiac/diabetic diet 3). Diabetes * your A1c today was 6.2 * I have initiated metformin daily please follow-up with your primary care physician for a follow-up A1c in 3 months * metformin may cause some GI discomfort and diarrhea in the 1st to 2 weeks when initiating therapy * hypoglycemic information has been attached How can you care for yourself at home? ? Keep track of any new symptoms or changes in your symptoms. ? Rest until you feel better. ? Be safe with medicines. Take your medicines exactly as prescribed. Call your doctor if you think you are having a problem with your medicine. ? Do not drive after taking a prescription pain medicine. ? Ensure to follow-up with primary care physician as indicated and provide updated medication list provided to you at discharge. When should you call for help? Call 911 anytime you think you may need emergency care. For example, call if: ? You passed out (lost consciousness). Call your doctor now or seek immediate medical care if: ? You have new symptoms like fever, difficulty breathing, Chest pain, vomiting, or rash. ? You have new or different pain. ? You are confused and are having trouble thinking clearly. ? Your symptoms are getting worse. Watch closely for changes in your health, and be sure to contact your doctor if: ? You do not get better as expected. Patient Instructions: Antibiotic Form, Furosemide (By mouth), Heart Failure (DC), How to Stop Smoking (DC), Hypoglycemia in a Person with Diabetes (DC), Type 2 Diabetes in Adults: New Diagnosis (DC), Chronic Lung Disease and Infection Prevention (DC), Dyspnea Scale and Exercise (DC), Nutrition Guidelines for People with COPD (DC) Patient Language: Botswanan Stand Alone Forms: General Discharge Information Follow-up/Referrals: Shadi Farley MD [Primary Care Provider, Internal Medicine] - 3 Weeks Referral Note: Will need follow-up 3 months for A1C Discharge Medications: New prednisone 20 mg Tablet 40 mg PO DAILY@0800 Qty: 8 0RF guaifenesin 200 mg tablet 600 mg PO BID Qty: 180 0RF azithromycin 250 mg tablet 250 mg PO ONCE Qty: 4 0RF metformin 500 mg tablet 500 mg PO DAILY Qty: 30 0RF furosemide [Lasix] 20 mg tablet 20 mg PO DAILY PRN (Reason: edema) Qty: 30 0RF Rx Instructions: Take as needed for lower extremity edema Continued naloxone 10 mg/0.4 mL auto-injector 2 mg subcut Q3M Qty: 4 0RF Rx Instructions: until desired response calcium polycarbophil [Fiber (calcium polycarbophil)] 625 mg tablet 625 mg PO DAILY omeprazole 20 mg capsule,delayed release(DR/EC) 20 mg PO DAILY atorvastatin 20 mg tablet 20 mg PO QPM Qty: 30 0RF albuterol sulfate 2.5 mg /3 mL (0.083 %) solution for nebulization 2.5 mg inhalation Q4-6H Qty: 75 0RF theophylline 400 mg tablet extended release 24 hr 400 mg PO DAILY Qty: 30 0RF montelukast 10 mg tablet 10 mg PO DAILY Qty: 30 0RF albuterol sulfate [Ventolin HFA] 90 mcg/actuation HFA aerosol inhaler 1 puff inhalation QID PRN (Reason: shortness of breath or wheezing) Qty: 8.5 0RF Discontinued azithromycin [Zithromax] 250 mg tablet See Rx Instructions .ROUTE .COMPLEX Qty: 6 0RF Rx Instructions: For 250 mg dose pack: take 500 mg today (day 1), then 250 mg for 4 days (days 2-5) Date of admission: 04/06/25 19:20 Primary Care Provider: Shadi Farley Admitting Provider: Alec Borja Attending physician on admission: Alec Borja Condition: Stable Quality -Patient's previous records reviewed on admission -ER notes reviewed in detail on admission -discussed all findings and current treatment plan with patient/Family/POA -Consultations reviewed for recommendations -Patient's disposition for safe discharge discussed with director case management -radiology imaging, EKG and test results I have personally reviewed and interpreted unless otherwise specified Dictation performed by Directr direct speech recognition software, therefore recoater variants and typographical errors may occur. Hospitalist MIPS Advance Care Plan I have confirmed that the patient's Advanced Care Plan is present, code status is documented, or surrogate decision maker is listed in patient medical record.: Yes Medication Reconciliation I have utilized all available resources to obtain, update and review the patients current medications (includes all prescriptions, OTC, herbals, cannabis, and nutritional supplements).: Yes The patient is not eligible for med reconciliation; the patient is in a emergent medical situation where delaying treatment would jeopardize the patients health.: No Heart Failure (Exclusion) Patient has history of Heart Transplant or Left Ventricular Assistive Device?: No IF YES, STOP HERE Heart Failure (Qualifier) Patient has current or prior documentation of LVEF less than or equal to 40%, or mod/servere depressed LVSF?: No IF NO, STOP HERE
--- NOTE | 2025-04-07 10:30 | PC.NURSE ---
Discharge instructions went over with patient, states understanding. Wishes to wait until after lunch to discharge. Will need staff to call his family d/t personal phone is .
--- NOTE | 2025-04-07 13:30 | PC.NURSE ---
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
--- NOTE | 2025-04-10 10:44 | PC.NURSE ---
Discharge call back completed, no questions regarding dc instructions or medications
== END 2025-04-07 13:30 | disposition home or self-care (01) ==
LOC: CHSED 19:20 → CHS2ND 04-07 07:06
PROVIDERS: Nurse Practitioner Family; Admitting Provider Internal Medicine; Emergency Provider Emergency Medicine; PCP Family Medicine; Visit Provider Internal Medicine
DX: J44.1 Chronic obstructive pulmonary disease with (acute) exacerbation (principal); Z86.19 Personal history of other infectious and parasitic diseases; I50.30 Unspecified diastolic (congestive) heart failure; E11.9 Type 2 diabetes mellitus without complications; E78.5 Hyperlipidemia, unspecified; I73.9 Peripheral vascular disease, unspecified; Z87.891 Personal history of nicotine dependence; Z20.822 Contact with and (suspected) exposure to COVID-19
CPT/HCPCS: 36415; 71045; 80053; 83036; 83605; 83735; 83880; 84484; 85025; 85610; 85730; 87637; 93005; 94640; 96365; 96367; 96375; 99285; A9270; J1938; J1956; J2919; J3475

== ENCOUNTER 2025-04-14 05:58 | Observation (INO) | payer OTHER, SELFPAY ==
[2025-04-14] VITALS (37 sets, daily range): BP systolic 94–142; BP diastolic 70–92; PULSE 65–111; RESP 13–20; TEMP 35.8–36.9; O2SAT 85–99; BMI 18.2
--- NOTE | ~2025-04-14 | XR_ITS ---
EXAMINATION: XR chest 1V portable COMPARISON: No comparisons available. HISTORY: Shortness of breath/HX OF COPD AND CHF FINDINGS: The lungs are clear, no effusion. No pneumothorax. Heart is normal size. Mediastinal and hilar contours are within normal limits. Bony thorax no acute abnormality. Miscellaneous: None Impression: No acute cardiopulmonary abnormality. Reviewed, dictated and finalized at location P. AGE HANDLER Impression: No acute cardiopulmonary abnormality.
--- NOTE | 2025-04-14 06:15 | ECG_ITS ---
Test Date: 2025-04-14 06:44:34 Measurements Intervals [place] Rate: 87 P: 86 HI: 155 QRS: 261 QRSD: 96 T: 75 QT: 371 QTc: 449 Interpretive Statements SINUS RHYTHM POSSIBLE RIGHT ATRIAL ENLARGEMENT [0.25mV P-WAVE] INDETERMINATE AXIS S1-S2-S3 PATTERN, CONSISTENT WITH PULMONARY DISEASE, RVH, OR NORMAL VARIANT PATTERN CONSISTENT WITH PULMONARY DISEASE ABNORMAL ECG Compared to ECG 04/06/2025 18:15:17 PVCS ARE NOT SEEN HEART RATE INCREASED Electronically Signed On 04-14-2025 13:31:28 LOCAL COMPANY TANKER DRIVER by Andrew Padilla M.D.
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
[2025-04-14] MEDS: MAGNESIUM SULF 2 GM/WATER 50ML 2 GM/50 ML BAG IVPB (06:25)
[2025-04-14] MEDS: IPRATROPIUM 0.5 MG/ALBUTEROL SULFATE 2.5 MG (BASE) AMPUL.NEB 3 ML INHALATION ×2 (06:25→12:33)
[2025-04-14 07:12] LABS: Hematocrit 41.5 % (40.0-54.0); Hemoglobin 13.3 g/dL (14.0-18.0); Immature Granulocyte Percent A 0.6 % (0.0-0.0); Lymphocytes Absolute Auto 1.50 K/mm3 (1.10-4.50); Mean Corpuscular HGB Conc 32.0 g/dL (32-36); Mean Corpuscular Hemoglobin 30.8 pg (27.0-31.0); Mean Corpuscular Volume 96.1 fL (78.0-102.0); Nucleated Red Blood Cells Absolute Auto 0.00 K/mm3 (0.00-0.00); Nucleated Red Blood Cells Perc 0.0 % (0-0.0); Platelet Count Result 248 K/mm3 (150-420); Red Blood Count 4.32 M/mm3 (4.70-6.10); White Blood Count 8.0 K/mm3 (4.8-10.8)
[2025-04-14 07:26] LABS: Alanine Aminotransferase 45 U/L (6-50); Albumin Level 4.2 g/dL (3.5-5.1); Alkaline Phosphatase 206 U/L (38-126); Anion Gap 8 mmol/L (4-12); Aspartate Amino Transferase 40 U/L (17-59); Blood Urea Nitrogen 37 mg/dL (9-20); Calcium 8.7 mg/dL (8.4-10.2); Carbon Dioxide 32 mmol/L (22-30); Chloride 99 mmol/L (98-107); Estimated CRCL calculation 54 ml/min; Estimated Glomerular Filt Rate > 60; Glucose 137 mg/dL (65-110); Magnesium 2.6 mg/dL (1.6-2.3); Osmolality Calculated 298 mOsm/kg (285-295); Potassium 3.5 mmol/L (3.4-5.0); Sodium 139 mmol/L (137-145); Total Protein 7.3 g/dL (6.3-8.2)
[2025-04-14 07:28] LABS: INR 1.0; Partial Thromboplastin Time 30.1 Sec (23.9-30.70); Prothrombin Time 10.8 Seconds (9.50-12.1)
[2025-04-14 07:31] LABS: Influenza A QL RT-PCR Negative (Negative); Influenza B QL RT-PCR Negative (Negative); RSV RNA, RT-PCR Negative (Negative); SARS-CoV-2 RNA PCR Negative (Negative)
[2025-04-14 07:35] LABS: NT Pro B Type Natriuretic Pept 791 pg/mL (19.9-100)
[2025-04-14 07:37] LABS: Troponin I 0.023 ng/mL (0.000-0.034)
[2025-04-14 08:20] LABS: Add Urine Microscopic? NO; Appearance Urine Clear (Clear); Glucose Urine UA Negative (Negative); Leukocyte Esterase Ur Negative LEU/UL (Negative); Nitrate Urine Negative (Negative); Specific Grav Ur 1.025 (1.010-1.020)
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
--- NOTE | 2025-04-14 10:08 | ADMGEN ---
This patient, Eddie Kirkland, was admitted to 2nd Floor Room 202-2. Patient/family oriented to hospital policies and general routines including ID bracelet, bed and alarms, visiting hours, pain management, procedures, bathroom and other care routines, personal items, smoking policy, room service/diet, and visiting hours. Information on how to activate the Rapid Response Team has been discussed. Patient/Family are encouraged to report perceived risks to care and to ask questions if they do not understand what they are told or what they should do.
--- NOTE | 2025-04-14 12:21 | P.PNCROSS_ITS ---
Event Note Event Note Event Note: Patient seen and examined at bedside. Patient completed ambulatory oximetry angle dy with respiratory therapy and requires 2L of oxygen by NC at all times to maintain adequate saturations. Patient will need an oxygen concentrator as well as portable oxygen for when he leaves the home. Patient has chronic medical conditions including COPD and CHF.
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
--- NOTE | 2025-04-14 16:30 | PC.NURSE ---
Discharge information reviewed with patient,patient verbalizes understanding. Reinforced teaching about safe oxygen use in home. [facility] account representative here to deliver oxygen to patient. Patient taken off floor per wheelchair
--- NOTE | 2025-04-17 10:37 | PC.NURSE ---
Discharge call attempted, no answer
--- NOTE | 2025-04-18 09:17 | PC.NURSE ---
Discharge call back completed, doing well, no questions regarding dc instructions
[2025-04-18 13:49] LABS: Bilirubin,Total < 0.1 mg/dL (0.2-1.3)
--- NOTE | 2025-05-08 14:11 | HOMEO2EVAL ---
Evaluation was performed at [facility]
== END 2025-04-14 16:30 | disposition home or self-care (01) ==
LOC: CHSED 09:10 → CHS2ND 09:19
PROVIDERS: Emergency Medicine; Admitting Provider Internal Medicine; Emergency Provider Emergency Medicine; PCP Family Medicine; Visit Provider Internal Medicine
DX: J44.1 Chronic obstructive pulmonary disease with (acute) exacerbation (principal); J45.901 Unspecified asthma with (acute) exacerbation; R09.02 Hypoxemia; E11.9 Type 2 diabetes mellitus without complications; I50.30 Unspecified diastolic (congestive) heart failure; F17.210 Nicotine dependence, cigarettes, uncomplicated; Z99.81 Dependence on supplemental oxygen; E78.5 Hyperlipidemia, unspecified; I73.9 Peripheral vascular disease, unspecified; Z86.19 Personal history of other infectious and parasitic diseases; Z20.822 Contact with and (suspected) exposure to COVID-19; Z79.84 Long term (current) use of oral hypoglycemic drugs
CPT/HCPCS: 36415; 71045; 80053; 81003; 83605; 83735; 83880; 84484; 85025; 85380; 85610; 85730; 87637; 93005; 94618; 94640; 96365; 96366; 96375; 99285; G0378; G0379; J2919; J3475

== ENCOUNTER 2025-04-26 19:50 | Observation (INO) | payer OTHER, SELFPAY ==
[2025-04-26] VITALS (10 sets, daily range): BP systolic 103–123; BP diastolic 55–81; PULSE 68–103; RESP 12–26; TEMP 36.2; O2SAT 90–100; BMI 18.9
--- NOTE | ~2025-04-26 | XR_ITS ---
EXAMINATION: XR chest 1V portable DATE: 04/26/2025 19:59 INDICATION: COPD. TECHNIQUE: A single frontal view of the chest was obtained. COMPARISON: Chest x-ray 04/14/2025 FINDINGS: Heart size is normal. Emphysematous lungs. No acute pulmonary findings. IMPRESSION: 1. No acute findings. Emphysematous lungs. Reviewed, dictated and finalized at location T. GHT MANAGER
--- OUTSIDE RECORDS SUMMARY | 2025-04-26 19:52 | XMS_ITS ---
Author Organization Unknown Address [address] [place] [address] [phone] Phone Care Team Providers Care Health And Wellness Advisor Name Role Phone WILBERT GRAYSON Attending Unavailable [...] Andrew Phan M.D. MF: [id number] Report ID: [id number] Reading Location: [id number] Social History Type Status Start Date End Date Code Code Syst em Sex Male Hospital Discharge Instructions Should you have any questions prior to discharge, please contact a member of your healthcare team. If you have left the hospital and have any questions, please contact your primary care physician. Reason For Referral No Data Found Plan of Treatment No Data Found Encounters Encounter Diagnosis Start Date Code Code Sys tem Incomplete rotator cuff tear or rupture of right shoulder, not specified as traumatic 08/28/2023 [facility] Personal Care Team Section Performer Name Performer Role Active Date Inactive Da MARIANNA Baker PCP - Primary care physician Imaging Narrative Notes
--- OUTSIDE RECORDS SUMMARY | 2025-04-26 19:52 | XMS_ITS | Clinical Summary ---
Author Organization [facility] Address [facility] [place] [address] Care Team Providers Care Farm Loan Representative Name Role Phone Dipti Rosario MD Primary Care Provider [phone] Social History Tobacco Use Types Packs/Day Years Used Date Smoking Tobacco: Smoker, Current Status Unknown Sex and Gender Information Value Date Recorded Sex Assigned at Male 07/01/2024 3:28 PM TALENT REP Legal Sex Male 7:51 PM CDT Gender [...] patient's age to complete this topic Insurance [employer] Care Teams Farm Loan Representative Relationship Specialty Start Date End Date Dipti Rosario MD [address] [place] [id number] PCP - General INTERNAL MEDICINE 04/06/24
--- NOTE | 2025-04-26 19:53 | ECG_ITS ---
Test Date: 2025-04-26 20:43:41 Measurements Intervals [place] Rate: 73 P: 93 WV: 150 QRS: 231 QRSD: 98 T: 80 QT: 398 QTc: 439 Interpretive Statements SINUS RHYTHM WITH OCCASIONAL SUPRAVENTRICULAR PREMATURE COMPLEXES INDETERMINATE AXIS PATTERN CONSISTENT WITH PULMONARY DISEASE ABNORMAL ECG Compared to ECG 04/14/2025 06:44:34 Right ventricular hypertrophy no longer present Electronically Signed On 04-27-2025 08:48:57 CHIEF COUNSEL by Vishal Otto M.D.
[2025-04-26] MEDS: ALBUTEROL SULFATE NEB 2.5 MG/3 ML INH 10 MG INHALATION (19:57)
--- NOTE | 2025-04-26 20:01 | PC.NURSE ---
yann with lab at the bedside
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
--- NOTE | 2025-04-26 20:18 | PC.NURSE ---
GARFIELD WITH LAB AT THE BEDSIDE. CALL LIGHT IN REACH. FABIO LABORED.
--- NOTE | 2025-04-26 20:28 | PC.NURSE ---
GARFIELD AT THE BEDSIDE DRAWING BLOOD CULTURES
[2025-04-26 20:38] LABS: HCO3 ABG 26.4 mmol/L (23-29); Oxygen Saturation ABG 88.9 % (95-97); PCO2 ABG 49.2 mmHg (35-45); PO2 ABG 59.7 mmHg (80-90)
[2025-04-26 20:40] LABS: Hematocrit 39.9 % (40.0-54.0); Hemoglobin 13.0 g/dL (14.0-18.0); Immature Granulocyte Percent A 0.3 % (0.0-0.0); Lymphocytes Absolute Auto 0.79 K/mm3 (1.10-4.50); Mean Corpuscular HGB Conc 32.6 g/dL (32-36); Mean Corpuscular Hemoglobin 31.3 pg (27.0-31.0); Mean Corpuscular Volume 96.1 fL (78.0-102.0); Nucleated Red Blood Cells Absolute Auto 0.00 K/mm3 (0.00-0.00); Nucleated Red Blood Cells Perc 0.0 % (0-0.0); Platelet Count Result 160 K/mm3 (150-420); Red Blood Count 4.15 M/mm3 (4.70-6.10); White Blood Count 6.8 K/mm3 (4.8-10.8)
[2025-04-26 20:42] LABS: Liters per Minute 2.0 LPM; Modified Allen's Test Pass; Site Drawn RIGHT RADIAL
[2025-04-26 20:52] LABS: Alanine Aminotransferase 45 U/L (6-50); Albumin Level 3.9 g/dL (3.5-5.1); Alkaline Phosphatase 181 U/L (38-126); Anion Gap 9 mmol/L (4-12); Aspartate Amino Transferase 41 U/L (17-59); Bilirubin,Total 0.5 mg/dL (0.2-1.3); Blood Urea Nitrogen 13 mg/dL (9-20); Calcium 9.3 mg/dL (8.4-10.2); Carbon Dioxide 31 mmol/L (22-30); Chloride 102 mmol/L (98-107); Estimated CRCL calculation 55 ml/min; Estimated Glomerular Filt Rate > 60; Glucose 109 mg/dL (65-110); Magnesium 1.7 mg/dL (1.6-2.3); Osmolality Calculated 295 mOsm/kg (285-295); Potassium 3.4 mmol/L (3.4-5.0); Sodium 142 mmol/L (137-145); Total Protein 6.7 g/dL (6.3-8.2)
[2025-04-26 20:53] LABS: INR 0.9; Prothrombin Time 10.3 Seconds (9.50-12.1)
[2025-04-26 20:56] LABS: Partial Thromboplastin Time 28.2 Sec (23.9-30.70)
[2025-04-26 21:01] LABS: NT Pro B Type Natriuretic Pept 1960 pg/mL (19.9-100)
[2025-04-26 21:04] LABS: Troponin I 0.015 ng/mL (0.000-0.034)
[2025-04-26 21:16] LABS: Influenza A QL RT-PCR Negative (Negative); Influenza B QL RT-PCR Negative (Negative); RSV RNA, RT-PCR Negative (Negative); SARS-CoV-2 RNA PCR Negative (Negative)
--- NOTE | 2025-04-26 21:23 | PC.NURSE ---
PATIENT IS RESTING ON STRETCHER. REPORTS THAT HIS BREATHING DOES NOT FEEL ANY BETTER. DR ARVIZU NOTIFIED
--- NOTE | 2025-04-26 21:26 | PC.NURSE ---
SOTO VAZQUEZ, CHARGE NURSE, NOTIFIED THAT PATIENT WILL BE ADMTTED.
--- NOTE | 2025-04-26 21:28 | PC.NURSE ---
PATIENT TO GO TO ROOM 205. JAYLEN WITH REGISTRATION NOTIFIED
--- NOTE | 2025-04-26 21:45 | ADMGEN ---
This patient, Eddie Kirkland, was admitted to 2nd Floor Room 205-1. Patient/family oriented to hospital policies and general routines including ID bracelet, bed and alarms, visiting hours, pain management, procedures, bathroom and other care routines, personal items, smoking policy, room service/diet, and visiting hours. Information on how to activate the Rapid Response Team has been discussed. Patient/Family are encouraged to report perceived risks to care and to ask questions if they do not understand what they are told or what they should do.
[2025-04-27] VITALS (9 sets, daily range): BP systolic 102–117; BP diastolic 62–82; PULSE 67–97; RESP 16–20; TEMP 36.7–36.8; O2SAT 91–95
[2025-04-27] MEDS: IPRATROPIUM 0.5 MG/ALBUTEROL SULFATE 2.5 MG (BASE) AMPUL.NEB 3 ML INHALATION ×3 (00:27→11:34)
[2025-04-27] MEDS: THEOPHYLLINE ANHYDROUS 200 MG ER 24 HR CAPSULE 400 MG PO (08:10)
[2025-04-27] MEDS: LOSARTAN POTASSIUM 50 MG TABLET PO (08:10)
[2025-04-27] MEDS: PANTOPRAZOLE 40 MG TABLET PO (08:10)
[2025-04-27] MEDS: MONTELUKAST SODIUM 10 MG TABLET PO (08:10)
--- NOTE | 2025-04-27 12:02 | P.SS_ITS ---
Same Day Admit/Disch: HPI History of Present Illness Chief complaint: ACUTE ON CHRONIC HYPOXIC RESP FAILURE TOBACCO ABUS Narrative: Eddie Kirkland is a 64 year old male with PMH of COPD, CHF, HLD, PVD, hepatitis C and tobacco abuse. Patient presented to the ER with complaints of increased shortness of breath for 3-5 days. Patient is on chronic oxygen by [place] at 2 liters at home. Patient is a current smoker. Patient denied any other associated symptoms including fever, chills, nausea, vomiting or chest pain. In the ER the patient's labs were essentially unremarkable aside from a BNP of 1960. Chest x- ray was negative for acute findings, rapid Covid, influenza and RSV swab was negative. Patient was given nebulizers and IV steroids for a COPD exacerbation. Patient was admitted for fuether observation. [facility] Past Medical History Medical History Tobacco abuse Hyperlipidemia Diastolic heart failure COPD (chronic obstructive pulmonary disease) Peripheral vascular disease Hepatitis C Asthma exacerbation in COPD Social History Social History Smoking packs per day: 0.5 Smoking cigarettes per day: 10.0 Years smoked: 40 Smoking pack-years: 20.00 Smoking status: Current every day smoker Tobacco type: cigarettes Second hand tobacco smoke exposure: No Alcohol intake: former Substance use: current Substance use type: marijuana Other substance usage details: marijuana gummies and smokes Lack of Transportation: No Lack of Food: Never True Current Housing: I Have Housing Concerned About Future Housing: No Difficulty Paying Gas/Electric Bills: YES Difficulty Paying for Meds: YES Currently Unemployed: No Education: Grade School Difficulty w/ Childcare or Family Care: No Spiritual care concerns: No Same Day Admit/Disch: Med Pre-admit Medications Home Medications ?Medication ?Instructions ?Recorded ?Confirmed ?Type naloxone 10 mg/0.4 mL 2 mg (0.08 mL) subcut Q3M #4 mL 07/13/24 04/26/25 Rx injection,auto-injector calcium polycarbophil 625 mg 625 mg PO DAILY 02/01/25 04/26/25 History tablet (Fiber (calcium polycarbophil)) omeprazole 20 mg capsule,delayed 20 mg PO DAILY 04/26/25 History release albuterol sulfate 2.5 mg/3 mL 2.5 mg (3 mL) inhalation Q4-6H #75 04/07/25 04/26/25 Rx (0.083 %) solution for nebulization mL albuterol sulfate 90 mcg/actuation 1 puff inhalation Q ID PRN 04/07/25 04/26/25 Rx aerosol inhaler (Ventolin HFA) shortness of breath or wheezing #8.5 grams atorvastatin 20 mg tablet 20 mg PO QPM #30 tabs 04/26/25 Rx furosemide 20 mg tablet (Lasix) 20 mg PO DAILY PRN emeka ma #30 tabs 04/07/25 04/26/25 Rx metformin 500 mg tablet 500 mg PO DAILY #30 tabs 12/2304/26/25 Rx montelukast 10 mg tablet 10 mg PO DAILY #30 tabs 12/2304/26/25 Rx theophylline 400 mg 400 mg PO DAILY #30 tabs 12/2304/26/25 Rx tablet,extended release 24 hr prednisone 20 mg tablet 40 mg (2 x 20 mg) PO DAILY 4 days 04/14/25 04/26/25 Rx #8 tabs losartan 50 mg tablet 50 mg PO DAILY #30 tabs 04/0204/26/25 Rx prednisone 20 mg tablet 40 mg (2 x 20 mg) PO DAILY # 8 tabs 04/27/25 Rx Review of Systems Review of Systems All systems reviewed & are unremarkable except as noted in HPI and below Exam Const: General: comfortable and no acute distress HENMT: Face/Nose/Sinus: Normal nares present Mouth: Yes moist mucous membranes Eyes: General: appearance normal, both eyes and all related structures Sclera: sclerae normal Neck: Neck: supple Resp: Other: diminished breath sounds, few expiratory wheezes heard Cardio: Rate: regular rate Rhythm: regular rhythm GI: GI Palp: Yes Soft to palpation Auscultation: normal bowel sounds Skin: General skin exam: normal color and no rashes or lesions noted Neuro: General: gait normal Speech: normal speech Motor exam (neuro): 5/5 motor strength present throughout Sensory Exam: normal sensation Extrem: General: normal to inspection Psych: Mental Status: mental status grossly normal Affect: normal affect DS: Data Data Completed and Pending Labs on day of discharge: Labs from last 24 hours 04/26/25 04/26/25 04/26/25 20:20 20:08 20:05 WBC 6.8 RBC 4.15 L Hgb 13.0 L Hct 39.9 L MCV 96.1 MCH 31.3 H MCHC 32.6 RDW 13.1 Plt Count 160 MPV 10.2 Immature Gran % (Auto) 0.3 H Neut % (Auto) 83.0 H Lymph % (Auto) 11.6 L [place] % (Auto) 4.9 Eos % (Auto) 0.1 L Baso % (Auto) 0.1 Lymph # (Auto) 0.79 L [place] # (Auto) 0.33 Eos # (Auto) 0.01 L Baso # (Auto) 0.01 Abs Immat Gran (auto) 0.02 H Absolute Neuts (auto) 5.64 Absolute Nucleated RBC 0.00 Nucleated RBC % 0.0 PT 10.3 INR 0.9 APTT 28.2 Puncture Site Right radial ABG pH 7.35 ABG pCO2 49.2 H ABG pO2 59.7 L ABG HCO3 26.4 ABG O2 Saturation 88.9 L ABG Base Excess -0.3 L Oxyhemoglobin 87.8 L O2 Delivery Device Nasal cannula O2 Liters/Min 2.0 Sodium 142 Potassium 3.4 Chloride 102 Carbon Dioxide 31 H Anion Gap 9 BUN 13 D Creatinine 0.89 Estim Creat Clear Calc 55 Estimated GFR > 60 Glucose 109 Calculated Osmolality 295 Lactic Acid 1.6 Calcium 9.3 Magnesium 1.7 Total Bilirubin 0.5 AST 41 ALT 45 Alkaline Phosphatase 181 H Troponin I 0.015 NT-Pro-B Natriuret Pep 1960 H Total Protein 6.7 Albumin 3.9 Influenza A (RT-PCR) Negative Influenza B (RT-PCR) Negative RSV (RT-PCR) Negative SARS-CoV-2 RNA (RT-PCR) Negative Imaging Radiologist's impression: Ordering Physician: Mai Bauer MD Date of Service: 04/26/25 Procedure(s): XR chest 1V portable Accession Number(s): [id number] cc: Mai Bauer MD; Shadi Farley MD~ EXAMINATION: XR chest 1V portable DATE: 04/26/2025 19:59 INDICATION: COPD. TECHNIQUE: A single frontal view of the chest was obtained. COMPARISON: Chest x-ray 04/14/2025 FINDINGS: Heart size is normal. Emphysematous lungs. No acute pulmonary findings. IMPRESSION: 1. No acute findings. Emphysematous lungs. 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 Patient presented to the ER with complaints of increased shortness of breath for 3-5 days. Patient is on chronic oxygen by [place] at 2 liters at home. Patient is a current smoker. Patient denied any other associated symptoms including fever, chills, nausea, vomiting or chest pain. In the ER the patient's labs were essentially unremarkable aside from a BNP of 1960. Chest x- ray was negative for acute findings, rapid Covid, influenza and RSV swab was negative. Patient was given nebulizers and IV steroids for a COPD exacerbation. Patient was admitted for further observation. Patient was improved by the next day and was not interested in placement in a penitentiary due to his generalized weakness. Patient with only few expiratory wheezes on exam and does not appear to be in respiratory distress. Patient will be discharged home with his home medications being resumed and on a course of PO prednisone. Patient will need to follow up with his PCP within 1-2 weeks of discharge. Patient counseled on smoking cessation. Time Spent with Patient Time attestation: Total time spent providing and/or coordinating discharge services: 25 Minutes DS: Admitting Diagnosis Discharge Date 04/27/2025 Admitting Diagnosis COPD exacerbation DS: Discharge Diagnosis Discharge Diagnosis (1) COPD exacerbation: Code(s): J44.1 - Chronic obstructive pulmonary disease with (acute) exacerbation Status: Acute Assessment and Plan: nebulizer treatments IV solu-medrol change to PO prednisone on discahrge no need for antibiotics improving (2) Diastolic heart failure: Code(s): I50.30 - Unspecified diastolic (congestive) heart failure Status: Acute Assessment and Plan: BNP elevated 1960 patient does not appear fluid overloaded continue home furosemide PRN (3) Tobacco abuse: Code(s): Z72.0 - Tobacco use Status: Acute Assessment and Plan: patient counseled on smoking cessation (4) Hypertension: Code(s): I10 - Essential (primary) hypertension Status: Acute Assessment and Plan: continued furosemide and losartan Discharge Plan Discharge Attending physician on discharge: Alec Borja Consulting providers: Jocy Frye; Vishal Otto; Annie Brady Discharging Clinician: Jocy Frye Patient Disposition: Home Activity: as tolerated Diet: as tolerated Patient Instructions: Prednisone (By mouth), Fall Prevention for Older Adults (DC), COPD (Chronic Obstructive Pulmonary Disease) (DC) Patient Language: Thai Stand Alone Forms: General Discharge Information Follow-up/Referrals: Shadi Farley MD [Primary Care Provider, Internal Medicine] Referral Note: Call for an appointment to be seen within 1-2 weeks of discharge Discharge Medications: New prednisone 20 mg tablet 40 mg PO DAILY Qty: 8 0RF Continued naloxone 10 mg/0.4 mL auto-injector 2 mg subcut Q3M Qty: 4 0RF Rx Instructions: until desired response calcium polycarbophil [Fiber (calcium polycarbophil)] 625 mg tablet 625 mg PO DAILY omeprazole 20 mg capsule,delayed release(DR/EC) 20 mg PO DAILY metformin 500 mg tablet 500 mg PO DAILY Qty: 30 0RF atorvastatin 20 mg tablet 20 mg PO QPM Qty: 30 0RF albuterol sulfate 2.5 mg /3 mL (0.083 %) solution for nebulization 2.5 mg inhalation Q4-6H Qty: 75 0RF theophylline 400 mg tablet extended release 24 hr 400 mg PO DAILY Qty: 30 0RF montelukast 10 mg tablet 10 mg PO DAILY Qty: 30 0RF albuterol sulfate [Ventolin HFA] 90 mcg/actuation HFA aerosol inhaler 1 puff inhalation QID PRN (Reason: shortness of breath or wheezing) Qty: 8.5 0RF furosemide [Lasix] 20 mg tablet 20 mg PO DAILY PRN (Reason: edema) Qty: 30 0RF Rx Instructions: Take as needed for lower extremity edema prednisone 20 mg tablet 40 mg PO DAILY 4 Days Qty: 8 0RF Rx Instructions: start on 04/15/2025 losartan 50 mg tablet 50 mg PO DAILY Qty: 30 5RF Date of admission: 04/26/25 21:09 Primary Care Provider: Shadi Farley Admitting Provider: Alec Borja Attending physician on admission: Alec Borja Condition: Stable Quality VTE Prophylaxis VTE prophylaxis: mechanical ordered
--- NOTE | 2025-04-27 12:45 | PC.NURSE ---
Discharge instructions discussed with patient, states understanding. Patient called father for order picker, is aware to bring Home O2.
--- NOTE | 2025-04-27 13:20 | PC.NURSE ---
Patient transported out of facility via wheelchair, into personal vehicle, left in stable condition.
--- NOTE | 2025-05-01 10:06 | PC.NURSE ---
Unable to complete discharge call back, no answer
== END 2025-04-27 13:20 | disposition home or self-care (01) ==
LOC: CHSED 21:26 → CHS2ND 21:33
PROVIDERS: Admitting Provider Internal Medicine; Emergency Provider Emergency Medicine; PCP Family Medicine; Visit Provider Internal Medicine
DX: J44.1 Chronic obstructive pulmonary disease with (acute) exacerbation (principal); F17.210 Nicotine dependence, cigarettes, uncomplicated; Z99.81 Dependence on supplemental oxygen; E78.5 Hyperlipidemia, unspecified; I50.30 Unspecified diastolic (congestive) heart failure; I11.0 Hypertensive heart disease with heart failure; I73.9 Peripheral vascular disease, unspecified; Z86.19 Personal history of other infectious and parasitic diseases; Z20.822 Contact with and (suspected) exposure to COVID-19
CPT/HCPCS: 36415; 36600; 71045; 80053; 82805; 83605; 83735; 83880; 84484; 85025; 85610; 85730; 87040; 87637; 93005; 94640; 96374; 96376; 99285; A9270; G0378; G0379; J2919

== ENCOUNTER 2025-05-15 08:28 | Outpatient (CLI) | payer OTHER, SELFPAY ==
--- NOTE | 2025-05-15 08:35 | EST_ITS ---
Patient Info Name: Eddie Kirkland Age: 64 years : 1960 Gender: Male Ht: 65 in Wt: 125 lbs BSA: 1.61 m2 HR: 70 bpm BP: 100 / 57 mmHg Heart Rhythm: Sinus Rhythm Technical Quality: Good Exam Date: 05/15/2025 8:35 AM Patient Status: O Admit Date: 05/15/2025 Exam Type: CA stress myah w NM A regadenoson stress test was performed. Staff Referring Physician: Riaz Morrison DO Attending Provider: Riaz Morrison DO Summary 1. 1. Negative lexiscan stress test for ischemic ST changes by ECG criteria. 2. 2. Stable hemodynamics throughout the test. 3. 3. Nuclear scan to follow and will be reported separately. Please correlate with it. 4. 4. Patient informed of the above results. History/Risk Factors Hypertension: Yes Dyslipidemia: Yes Tobacco Use: Current - Every Day If Any Current, Tobacco Type: Cigarettes If Current - Every Day \T\ Cigarettes, Amount: Light Tobacco Use (<10/day) Protocol: LEXISCAN Stress ECG Details Stage: REST Duration (min): 1 min : 17 sec HR (bpm): 70 SBP (mmHg): 100 DBP (mmHg): 57 Stage: REST Duration (min): 4 min : 8 sec HR (bpm): 75 SBP (mmHg): 100 DBP (mmHg): 57 Stage: STAGE 1 Duration (min): 0 min : 50 sec HR (bpm): 82 SBP (mmHg): 100 DBP (mmHg): 57 Stage: RECOVERY Duration (min): 0 min : 9 sec HR (bpm): 93 SBP (mmHg): 100 DBP (mmHg): 57 Stage: RECOVERY Duration (min): 1 min : 9 sec HR (bpm): 100 SBP (mmHg): 100 DBP (mmHg): 57 Stage: RECOVERY Duration (min): 2 min : 9 sec HR (bpm): 91 SBP (mmHg): 88 DBP (mmHg): 49 Stage: RECOVERY Duration (min): 3 min : 9 sec HR (bpm): 87 SBP (mmHg): 100 DBP (mmHg): 50 Stage: RECOVERY Duration (min): 4 min : 9 sec HR (bpm): 95 SBP (mmHg): 98 DBP (mmHg): 52 Stage: RECOVERY Duration (min): 5 min : 9 sec HR (bpm): 79 SBP (mmHg): 98 DBP (mmHg): 49 Stage: RECOVERY Duration (min): 6 min : 9 sec HR (bpm): 84 SBP (mmHg): 91 DBP (mmHg): 50 Stage: RECOVERY Duration (min): 7 min : 9 sec HR (bpm): 69 SBP (mmHg): 105 DBP (mmHg): 55 Stage: RECOVERY Duration (min): 7 min : 35 sec HR (bpm): --- SBP (mmHg): 105 DBP (mmHg): 55 Rest HR: 75 bpm Peak HR: 104 bpm Rest Sys BP: 100 mmHg Peak Sys BP: 105 mmHg Max Pred HR: 156 bpm % Max Pred HR: 67 % Target HR: 133 bpm Max RPP: 10,920 bpm*mmHg BP Response: Normal blood pressure response Termination Reason: Completed Protocol Cardiac Symptoms: None Total Time: 0 min : 50 sec Rest Person BP: 57 mmHg Peak Person BP: 55 mmHg Total Dose: 0.4 mg Resting ECG Sinus rhythm with incomplete RBBB, BRWP. Stress ECG No abnormal ST/T wave changes. Arrhythmias No arrhythmias were observed during the examination. Report Signatures
--- NOTE | 2025-05-15 13:19 | WPDCARIOSTRE ---
Nuclear Stress Test INDICATIONS Indications: Chest pain PROCEDURE Procedure Performed: Myocardial Perf Spect-Multi Procedure: Patient underwent a lexiscan stress test and immediately was injected with 32.9 mCi of cardiolyte. Multiple tomographic images were obtained. These are of good quality. There is a small size, mild septal perfusion defect with stress imaging. A separate resting images were obtained after patient was injected with 10.2 mCi of cardiolyte. Multiple tomographic images were obtained. These are of good quality. There is a small size, mild septal perfusion defect with rest imaging. CONCLUSION Conclusion: 1. Myocardial perfusion imaging demonstrating a fixed small size septal perfusion defect suggestive of attenuation artifact. 2. No evidence of reversible ischemia. 3. Left ventriculogram demonstrates normal measured ejection fractioin of 56% with no wall motion abnormalities. 4. TID score 1.15 is not elevated.
== END 2025-05-15 08:29 | disposition home or self-care (01) ==
LOC: CHSCARD 08:29
PROVIDERS: PCP Family Medicine; Visit Provider Internal Medicine Cardiovascular Disease
DX: R07.9 Chest pain, unspecified (principal)
CPT/HCPCS: 78452; 93017; A9502; J2785